=== PATIENT | male | born 1975 | race Two or more races ===

== ENCOUNTER 2017-03-28 10:35 | Emergency (ER) | payer BC ==
[2017-03-28 10:45] VITALS: BP 121/76
[2017-03-28] MEDS ORDERED: Ondansetron 4 MG/2 ML SDV IVPUSH ONE (10:55)
[2017-03-28] MEDS ORDERED: Sodium Chloride 0.9% 1,000 ML IV STA (10:55)
[2017-03-28] MEDS ORDERED: Sodium Chloride 0.9% 10 ML Syringe FLUSH PRN (10:55)
[2017-03-28] MEDS ORDERED: Famotidine 20 MG/2 ML SDV IVPUSH ONE (10:56)
--- NOTE | 2017-03-28 12:29 | EDM.PDOC ---
ED HPI GENERAL MEDICAL PROBLEM - General Chief Complaint: Abdominal Pain Stated Complaint: ABDOMINAL PAIN AND CHILLS Time Seen by Provider: 03/28/17 10:48 Source of Information: Reports: Patient History Limitations: Reports: No Limitations - History of Present Illness INITIAL COMMENTS - FREE TEXT/NARRATIVE: The patient presents with upper abdominal pain and nausea. This started 1 week ago. He has no vomiting or diarrhea. He has no dysuria. He can eat but he has a decreased appetite. His roommate is sick like he is. He has no fever or chills. He has no chest pain or shortness of breath. He has his gallbladder and appendix. Onset: Gradual Duration: Week(s): (1) Location: Reports: Abdomen Quality: Reports: Ache Severity: Mild Improves with: Reports: None Worsens with: Reports: None Associated Symptoms: Reports: Nausea/Vomiting. Denies: Cough, Fever/Chills, Headaches, Shortness of Breath Bilateral Upper Abdomen Pain Score (Numeric/FACES): 6 - Related Data Allergies Allergy/AdvReac Type Severity Reaction Status Date / Time No Known Allergies Allergy Verified 12/14/15 08:17 Home Meds: Home Meds Ondansetron [Zofran ODT] 4 mg PO Q6H PRN #20 tab.dis 03/28/17 [Rx] Past Medical History - Past Health History Medical/Surgical History: Denies Medical/Surgical History Dermatologic History: Reports: Other (See Below) Other Dermatologic History: lymphedema - Past Surgical History Dermatological Surgical History: Reports: Other (See Below) Social & Family History - Family History Endocrine/Metabolic: Reports: Diabetes, type II Oncologic: Reports: Prostate - Tobacco Use Smoking Status *Q: Never Smoker Years of Tobacco use: 20 Packs/Tins Daily: 1 Second Hand Smoke Exposure: No - Caffeine Use Caffeine Use: Reports: None - Alcohol Use Days Per Week of Alcohol Use: 0 - Recreational Drug Use Recreational Drug Use: No ED ROS GENERAL - Review of Systems Review Of Systems: See Below Constitutional: Reports: No Symptoms HEENT: Reports: No Symptoms Respiratory: Reports: No Symptoms Cardiovascular: Reports: No Symptoms Endocrine: Reports: No Symptoms GI/Abdominal: Reports: Abdominal Pain, Nausea. Denies: Diarrhea, Vomiting : Reports: No Symptoms Musculoskeletal: Reports: No Symptoms ED EXAM, GI/ABD - Physical Exam Exam: See Below Exam Limited By: No Limitations General Appearance: Alert, No Apparent Distress Ears: Normal External Exam Nose: Normal Inspection Head: Atraumatic, Normocephalic Neck: Normal Inspection Respiratory/Chest: No Respiratory Distress, Lungs Clear, Normal Breath Sounds Cardiovascular: Regular Rate, Rhythm, No Edema, No Murmur GI/Abdominal Exam: Soft, No Organomegaly, No Mass, Tender (Mild tenderness to the epigastric region) Course - Vital Signs Last Recorded V/S: Last Vital Signs Temp 98 F 03/28/17 10:42 Pulse 42 L 03/28/17 10:42 Resp 18 03/28/17 10:42 BP 121/76 03/28/17 10:42 Pulse Ox 100 03/28/17 10:42 - Orders/Labs/Meds Orders: Active Orders 24 hr Category Date Time Status Peripheral IV Care [RC] . DIRECTED Care 03/28/17 10:55 Active Sodium Chloride 0.9% [Saline Flush] Med 03/28/17 10:55 Active 10 ml FLUSH ASDIRECTED PRN ED Antiemetic Medication Reflex [OM.PC] Stat Oth 03/28/17 10:55 Ordered Peripheral IV Insertion Adult [OM.PC] Stat Oth 03/28/17 10:55 Ordered Medication Orders Sodium Chloride (Saline Flush) 10 ml FLUSH ASDIRECTED PRN PRN Reason: Keep Vein Open Last Admin: 03/28/17 11:13 Dose: 10 ml Labs: Laboratory Tests 03/28/17 03/28/17 03/28/17 Range/Units 11:15 11:15 11:15 WBC 2.97 L (4.23-9.07) K/mm3 RBC 4.60 L (4.63-6.08) M/mm3 Hgb 12.5 L (13.7-17.5) gm/L Hct 37.6 L (40.1-51.0) % MCV 81.7 (79.0-92.2) fl MCH 27.2 (25.7-32.2) pg MCHC 33.2 (32.2-35.5) g/dl RDW Std Deviation 42.8 (35.1-43.9) fL Plt Count 239 (163-337) K/mm3 MPV 9.5 (9.4-12.3) fl Neut % (Auto) 38.7 (34.0-67.9) % Lymph % (Auto) 46.5 (21.8-53.1) % [place] % (Auto) 8.4 (5.3-12.2) % Eos % (Auto) 5.7 (0.8-7.0) Baso % (Auto) 0.7 (0.1-1.2) % Neut # (Auto) 1.15 L (1.78-5.38) K/mm3 Lymph # (Auto) 1.38 (1.32-3.57) K/mm3 [place] # (Auto) 0.25 L (0.30-0.82) K/mm3 Eos # (Auto) 0.17 (0.04-0.54) K/mm3 Baso # (Auto) 0.02 (0.01-0.08) K/mm3 Manual Slide Review Abnormal smear Sodium 142 (136-145) mEq/L Potassium 3.9 (3.5-5.1) mEq/L Chloride 106 (98-107) mEq/L Carbon Dioxide 28 (21-32) mEq/L Anion Gap 11.9 (5-15) BUN 13 (7-18) mg/dL Creatinine 1.0 (0.7-1.3) mg/dL Est Cr Clr Drug Dosing 118.53 mL/min Estimated GFR (MDRD) > 60 (>60) mL/min BUN/Creatinine Ratio 13.0 L (14-18) Glucose 87 (74-106) mg/dL Calcium 9.0 (8.5-10.1) mg/dL Total Bilirubin 0.7 (0.2-1.0) mg/dL AST 25 (15-37) U/L ALT 38 (16-63) U/L Alkaline Phosphatase 68 (46-116) U/L Total Protein 7.1 (6.4-8.2) g/dl Albumin 3.5 (3.4-5.0) g/dl Globulin 3.6 gm/dL Albumin/Globulin Ratio 1.0 (1-2) Lipase 149 (73-393) U/L Urine Color Yellow (Yellow) Urine Appearance Clear (Clear) Urine pH 7.0 (5.0-8.0) Ur Specific [place] 1.025 (1.005-1.030) Urine Protein Negative (Negative) Urine Glucose (UA) Negative (Negative) Urine Ketones Negative (Negative) Urine Occult Blood Negative (Negative) Urine Nitrite Negative (Negative) Urine Bilirubin Negative (Negative) Urine Urobilinogen 0.2 (0.2-1.0) Ur Leukocyte Esterase Negative (Negative) Urine RBC 0-5 (0-5) /hpf Urine WBC 0-5 (0-5) /hpf Ur Epithelial Cells 0-5 (0-5) /hpf Amorphous Sediment Few H (NOT SEEN) /hpf Urine Bacteria Few (FEW) /hpf Urine Mucus Not seen (FEW) /hpf Monoscreen (NEGATIVE) 03/28/17 Range/Units 11:15 WBC (4.23-9.07) K/mm3 RBC (4.63-6.08) M/mm3 Hgb (13.7-17.5) gm/L Hct (40.1-51.0) % MCV (79.0-92.2) fl MCH (25.7-32.2) pg MCHC (32.2-35.5) g/dl RDW Std Deviation (35.1-43.9) fL Plt Count (163-337) K/mm3 MPV (9.4-12.3) fl Neut % (Auto) (34.0-67.9) % Lymph % (Auto) (21.8-53.1) % [place] % (Auto) (5.3-12.2) % Eos % (Auto) (0.8-7.0) Baso % (Auto) (0.1-1.2) % Neut # (Auto) (1.78-5.38) K/mm3 Lymph # (Auto) (1.32-3.57) K/mm3 [place] # (Auto) (0.30-0.82) K/mm3 Eos # (Auto) (0.04-0.54) K/mm3 Baso # (Auto) (0.01-0.08) K/mm3 Manual Slide Review Sodium (136-145) mEq/L Potassium (3.5-5.1) mEq/L Chloride (98-107) mEq/L Carbon Dioxide (21-32) mEq/L Anion Gap (5-15) BUN (7-18) mg/dL Creatinine (0.7-1.3) mg/dL Est Cr Clr Drug Dosing mL/min Estimated GFR (MDRD) (>60) mL/min BUN/Creatinine Ratio (14-18) Glucose (74-106) mg/dL Calcium (8.5-10.1) mg/dL Total Bilirubin (0.2-1.0) mg/dL AST (15-37) U/L ALT (16-63) U/L Alkaline Phosphatase (46-116) U/L Total Protein (6.4-8.2) g/dl Albumin (3.4-5.0) g/dl Globulin gm/dL Albumin/Globulin Ratio (1-2) Lipase (73-393) U/L Urine Color (Yellow) Urine Appearance (Clear) Urine pH (5.0-8.0) Ur Specific [place] (1.005-1.030) Urine Protein (Negative) Urine Glucose (UA) (Negative) Urine Ketones (Negative) Urine Occult Blood (Negative) Urine Nitrite (Negative) Urine Bilirubin (Negative) Urine Urobilinogen (0.2-1.0) Ur Leukocyte Esterase (Negative) Urine RBC (0-5) /hpf Urine WBC (0-5) /hpf Ur Epithelial Cells (0-5) /hpf Amorphous Sediment (NOT SEEN) /hpf Urine Bacteria (FEW) /hpf Urine Mucus (FEW) /hpf Monoscreen Negative (NEGATIVE) Meds: Medications Generic Name Dose Route Start Last Admin Trade Name Vania PRN Reason Stop Dose Admin Sodium Chloride 10 ml 03/28/17 10:55 03/28/17 11:13 Saline Flush FLUSH 10 ml ASDIRECTED PRN Administration Keep Vein Open Discontinued Medications Generic Name Dose Route Start Last Admin Trade Name Vania PRN Reason Stop Dose Admin Famotidine 20 mg 03/28/17 10:56 03/28/17 11:13 Pepcid IVPUSH 03/28/17 10:57 20 mg ONETIME ONE Administration Sodium Chloride 1,000 mls @ 1,000 mls/hr 03/28/17 10:55 03/28/17 11:13 Normal Saline IV 03/28/17 11:54 1,000 mls/hr .BOLUS STA Administration Ondansetron HCl 4 mg 03/28/17 10:55 03/28/17 11:13 Zofran IVPUSH 03/28/17 10:56 4 mg ONETIME ONE Administration - Re-Assessments/Exams Free Text/Narrative Re-Assessment/Exam: 03/28/17 12:29 I ordered an IV NS 1L bolus, zofran 4mg IV and pepcid 20mg IV. 03/28/17 12:29 His WBC was low at 2.97. His Hgb was a little low at 12.5. His CMP is negative. His UA shows no UTI. His mono was negative. He feels better. I will give him a prescription for zofran and have him take some pepcid. Departure - Departure Time of Disposition: 12:30 Disposition: Home, Self-Care 01 Condition: Good Clinical Impression: Viral gastritis - Discharge Information Prescriptions: Ondansetron [Zofran ODT] 4 mg PO Q6H PRN #20 tab.dis PRN Reason: Nausea/Vomiting Referrals: Alejandrina Bowen PA [Primary Care Provider] - 1 Week Forms: ED Department Discharge, ED Return to Work/School Form Additional Instructions: Take the zofran 4mg by mouth every 6 hours for nausea or vomiting. Take the pepcid 20mg daily for 1 week. You can buy that over the counter at the pharmacy or at the grocery store. Avoid any spicy foods. Drink plenty of fluids. Avoid alcohol. Follow up with your provider next week. Please return if you are worse. - My Orders Last 24 Hours: My Active Orders 03/28/17 10:55 Peripheral IV Care [RC] . DIRECTED Sodium Chloride 0.9% [Saline Flush] 10 ml FLUSH ASDIRECTED PRN ED Antiemetic Medication Reflex [OM.PC] Stat Peripheral IV Insertion Adult [OM.PC] Stat - Assessment/Plan Last 24 Hours: My Active Orders 03/28/17 10:55 Peripheral IV Care [RC] . DIRECTED Sodium Chloride 0.9% [Saline Flush] 10 ml FLUSH ASDIRECTED PRN ED Antiemetic Medication Reflex [OM.PC] Stat Peripheral IV Insertion Adult [OM.PC] Stat
== END 2017-03-28 12:52 | disposition home or self-care (01) ==
LOC: JD.ED 10:35
DX: A08.4 Viral intestinal infection, unspecified (principal)
CPT/HCPCS: 36415; 80053; 81001; 83690; 85025; 86308; 96361; 96374; 96375; 99284; J2405; J7040; J7050

== ENCOUNTER 2017-05-10 09:25 | Emergency (ER) | payer BC ==
[2017-05-10 09:38] VITALS: BP 131/81
[2017-05-10] MEDS ORDERED: Alum Hydrox/Mag Hydrox/Simeth 30 ML, Lidocaine 2% 15 ML PO STA ×2 (09:55)
--- NOTE | 2017-05-10 10:06 | EDM.PDOC ---
ED HPI GENERAL MEDICAL PROBLEM - General Chief Complaint: Chest Pain Stated Complaint: CHEST PAIN/STOMACH PAIN Time Seen by Provider: 05/10/17 09:37 Source of Information: Reports: Patient, Old Records, RN Notes Reviewed History Limitations: Reports: No Limitations - History of Present Illness INITIAL COMMENTS - FREE TEXT/NARRATIVE: The patient states that he developed rapid onset pressure in his epigastric and central chest around 01:00 this morning, while lying back in a recliner. He states that his symptoms improved after he got up, although they are still there. He has not tried any treatment for this. He states that he had similar symptoms about a year ago. Medical records indicate that the patient was seen in this ED 12/12/2015. Workup was negative, although the patient was diagnosed with dehydration. I note that the patient's oxygen saturation was 100% on room air during that visit. The patient states that he followed up at [facility] ED the following day. He states that additional tests were done, all of which were negative, and the patient was again given a diagnosis of dehydration. Medical records indicate that the patient was then seen in this ED the next day, on 12/14/2015 with a complaint of whole body numbness, feeling anxious, chest tightness, and hand shakiness. Again his oxygen saturation was 100% on room air. He was given the diagnosis of anxiety and prescribed Ativan. The patient has a history of morbid obesity, status post a 300 pound weight loss. He states that he takes Hydroxycut and drinks 5-hour Energy. It is noted that the patient's oxygen saturation is 100% on room air here in the ED today. The patient's PCP is Alejandrina Bowen. Chest Pain Score (Numeric/FACES): 2 - Related Data Allergies Allergy/AdvReac Type Severity Reaction Status Date / Time No Known Allergies Allergy Verified 05/10/17 09:35 Home Meds: Home Meds Ondansetron [Zofran ODT] 4 mg PO Q6H PRN #20 tab.dis 03/28/17 [Rx] Past Medical History Cardiovascular History: Reports: Other (See Below) (BLE lymphedema) Endocrine/Metabolic History: Reports: Obesity/BMI 30+ - Past Surgical History Dermatological Surgical History: Reports: Other (See Below) (Lipoma excision from right thigh) Social & Family History - Family History Endocrine/Metabolic: Reports: Diabetes, type II Oncologic: Reports: Prostate - Tobacco Use Smoking Status *Q: Never Smoker Second Hand Smoke Exposure: No - Caffeine Use Caffeine Use: Reports: None - Alcohol Use Alcohol Use History: Yes Alcohol Use Frequency: Socially - Recreational Drug Use Recreational Drug Use: No - Living Situation & Occupation Living situation: Reports: (), Other (Roommate) Occupation: Employed ([employer]) ED ROS GENERAL - Review of Systems Review Of Systems: See Below Constitutional: Reports: No Symptoms HEENT: Reports: No Symptoms Respiratory: Reports: No Symptoms Cardiovascular: Reports: No Symptoms Endocrine: Reports: No Symptoms GI/Abdominal: Reports: No Symptoms : Reports: No Symptoms Musculoskeletal: Reports: No Symptoms Skin: Reports: No Symptoms Neurological: Reports: No Symptoms Psychiatric: Reports: No Symptoms Hematologic/Lymphatic: Reports: No Symptoms Immunologic: Reports: No Symptoms ED EXAM, GENERAL - Physical Exam Exam: See Below Exam Limited By: No Limitations General Appearance: Alert, WD/WN, No Apparent Distress Eye Exam: Bilateral Eye: Normal Inspection Ears: Normal External Exam, Hearing Grossly Normal Nose: Normal Inspection, No Blood Throat/Mouth: Normal Inspection, Normal Lips, Normal Voice, No Airway Compromise Head: Atraumatic, Normocephalic Neck: Normal Inspection, Full Range of Motion Respiratory/Chest: No Respiratory Distress, Lungs Clear, Normal Breath Sounds, No Accessory Muscle Use Cardiovascular: Normal Peripheral Pulses, Regular Rate, Rhythm, No Gallop, No JVD, No Murmur, No Rub Peripheral Pulses: 4+: Radial (L), Radial (R) GI/Abdominal: Normal Bowel Sounds, Soft, Non-Tender, No Organomegaly, No Distention, No Abnormal Bruit, Other (Obese) (Male) Exam: Deferred Rectal (Males) Exam: Deferred Back Exam: Normal Inspection, Full Range of Motion, NT Extremities: Normal Range of Motion, Normal Capillary Refill, Other (Mild non- pitting edema bilateral lower extremity) Neurological: Alert, Oriented, Normal Cognition, No Motor/Sensory Deficits Psychiatric: Normal Affect Skin Exam: Warm, Dry, Intact, Normal Color, No Rash EKG INTERPRETATION EKG Date: 05/10/17 Time: 09:33 Rhythm: Other (Sinus bradycardia) Rate (Beats/Min): 44 [place]: Normal P-Wave: Present QRS: Normal ST-T: Normal QT: Normal Comparison: No Change (12/07/2015) Course - Vital Signs Last Recorded V/S: Last Vital Signs Temp 36.0 C 05/10/17 09:35 Pulse 46 L 05/10/17 09:35 Resp 14 05/10/17 09:35 BP 131/81 05/10/17 09:35 Pulse Ox 95 05/10/17 09:35 - Orders/Labs/Meds Orders: Active Orders 24 hr Category Date Time Status EKG Documentation Completion [RC] STAT Care 05/10/17 09:43 Active Meds: Medications Discontinued Medications Generic Name Dose Route Start Last Admin Trade Name Vania PRN Reason Stop Dose Admin Al Hydroxide/Mg Hydroxide 30 0 ml 05/10/17 09:55 05/10/17 10:04 ml/ Lidocaine HCl 15 ml PO 05/10/17 09:56 45 ml ONETIME STA Administration - Re-Assessments/Exams Free Text/Narrative Re-Assessment/Exam: 05/10/17 10:18 The patient states that he has significant improvement in his epigastric and chest pain following a GI cocktail. 05/10/17 10:29 The patient appears to have occasional GERD. I am recommending that if these symptoms occur infrequently, that he take an [id number]-[id number] antacid, such as Tums or Maalox. If they occur more frequently, I'm recommending that he start taking an [id number]-pym-ivmbyeh H2 carmen, such as famotidine or ranitidine. If that is unsuccessful, I would recommend that he switch to a PPI, however, if that were the case, I would recommend that he undergo an EGD. I also noticed that the patient's oxygen saturation was 100% while on room air here in the ED, and reviewing his prior ED visits on 12/12/2015 and 12/14/2015, it was the same. The patient was correctly diagnosed with anxiety by Dr. Chamorro on 12/13/2016, and prescribed Ativan, however, the patient has not followed up on this. I'm recommending that if he continues to have symptoms of anxiety, including whole body numbness, feeling anxious, chest tightness, and hand shakiness, as he did on 12/14/2015, that he follow-up with his PCP to discuss treatment options for anxiety. Departure - Departure Time of Disposition: 10:43 Disposition: Home, Self-Care 01 Condition: Good Clinical Impression: GERD (gastroesophageal reflux disease) - Discharge Information Instructions: Gastroesophageal Reflux Disease, Adult Referrals: Alejandrina Bowen PA [Primary Care Provider] - Forms: ED Department Discharge Additional Instructions: You were seen in the emergency room for upper abdominal and central chest pressure that began around midnight. Workup in the ER included an ECG and a GI cocktail. The GI cocktail gave significant relief, confirming that your pain is due to GERD. Your ECG was normal. If these symptoms are rare, you can simply take an antacid such as Tums or Maalox, however, if they are more frequent, we recommend you start taking an blth-yck-gmgksep H2 carmen, such as ranitidine or famotidine, once or twice a day. These medicines are inexpensive, and known to be safe. If you continue to have symptoms despite taking an H2 carmen, we would recommend that you switch to a proton pump inhibitor, such as Prilosec or Nexium , however, if this were the case, we would recommend that you get an EGD (scope of the stomach), to make sure that nothing serious is happening. Your oxygen saturation was noticed to be 100% on room air, consistent with hyperventilation. This was also the case on your prior ER visit on 12/12/2015 and 12/14/2015. The symptoms that you have had on 12/14/2015 of numbness, feeling anxious, chest tightness, and shaky hands was due to anxiety. If you have these symptoms of anxiety only rarely, nothing needs to be done, however, if these symptoms become frequent, we recommend that you follow-up with your PCP, Alejandrina Bowen, to discuss treatment options for anxiety. If any other problems, please do not hesitate to return to the ER. - My Orders Last 24 Hours: My Active Orders 05/10/17 09:43 EKG Documentation Completion [RC] STAT - Assessment/Plan Last 24 Hours: My Active Orders 05/10/17 09:43 EKG Documentation Completion [RC] STAT
== END 2017-05-10 10:56 | disposition home or self-care (01) ==
LOC: JD.ED 09:25
DX: K21.9 Gastro-esophageal reflux disease without esophagitis (principal); E66.01 Morbid (severe) obesity due to excess calories
CPT/HCPCS: 93005; 99284; A9270; 93010; 99282-25

== ENCOUNTER 2017-05-27 18:40 | Emergency (ER) | payer BC ==
[2017-05-27 19:09] VITALS: BP 117/65
--- NOTE | 2017-05-27 19:15 | EDM.PDOC ---
ED HPI GENERAL MEDICAL PROBLEM - General Chief Complaint: ENT Problem Stated Complaint: SINUS PAIN Time Seen by Provider: 05/27/17 19:08 Source of Information: Reports: Patient History Limitations: Reports: No Limitations - History of Present Illness INITIAL COMMENTS - FREE TEXT/NARRATIVE: 41-year-old male presents the ED with acute onset of upper respiratory tract infection. He is febrile with some chills. Left ear pain aware of the postnasal drip running down his throat causing him to have paroxysmal cough. No severe chills and appetite remains okay. Minimal cough from postnasal drip. Became ill about 2-1/2 days ago. Has been traveling extensively from [place] to [place] and then to here. Onset: Gradual Onset Date: 05/25/17 Duration: Day(s): Location: Reports: Face Quality: Reports: Ache Severity: Moderate Improves with: Reports: None Worsens with: Reports: None Context: Denies: Activity, Exercise, Lifting, Sick Contact, Trauma, Other Associated Symptoms: Reports: Cough, Fever/Chills, Headaches, Loss of Appetite. 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: Other (see below) Head Pain Score (Numeric/FACES): 4 - Related Data Allergies Allergy/AdvReac Type Severity Reaction Status Date / Time No Known Allergies Allergy Verified 05/27/17 19:07 Home Meds: Home Meds Ondansetron [Zofran ODT] 4 mg PO Q6H PRN #20 tab.dis 03/28/17 [Rx] Amoxicillin/Clavulanate K [Augmentin 500 MG\125 MG] 1 tab PO Q12HR #20 tablet [Rx] Loratadine/Pseudoephedrine [Claritin-D 24 Hour Tablet] 1 each PO DAILY #5 tab.er.24h 05/27/17 [Rx] Past Medical History - Past Health History Medical/Surgical History: Denies Medical/Surgical History Cardiovascular History: Reports: Other (See Below) (BLE lymphedema) Endocrine/Metabolic History: Reports: Obesity/BMI 30+ Dermatologic History: Reports: Other (See Below) Other Dermatologic History: lymphedema - Past Surgical History Dermatological Surgical History: Reports: Other (See Below) (Lipoma excision from right thigh) Social & Family History - Family History Endocrine/Metabolic: Reports: Diabetes, type II Oncologic: Reports: Prostate - Tobacco Use Smoking Status *Q: Never Smoker Years of Tobacco use: 20 Packs/Tins Daily: 1 Second Hand Smoke Exposure: No - Caffeine Use Caffeine Use: Reports: None - Alcohol Use Days Per Week of Alcohol Use: 0 - Recreational Drug Use Recreational Drug Use: No - Living Situation & Occupation Living situation: Reports: (), Other (Roommate) Occupation: Employed ([employer]) ED ROS ENT - Review of Systems Review Of Systems: See Below Constitutional: Reports: Fever, Chills, Malaise, Weakness. Denies: Decreased Appetite, Weight Loss HEENT: Reports: Ear Pain (Left side), Sinus Problem (Postnasal drip) Respiratory: Reports: Cough. Denies: Shortness of Breath, Sputum, Hemoptysis, Other Cardiovascular: Reports: No Symptoms Endocrine: Reports: No Symptoms GI/Abdominal: Reports: No Symptoms : Reports: No Symptoms Musculoskeletal: Reports: No Symptoms Skin: Reports: No Symptoms Neurological: Reports: No Symptoms, Change in Speech Hematologic/Lymphatic: Reports: No Symptoms Immunologic: Reports: No Symptoms ED EXAM, ENT - Physical Exam Exam: See Below Exam Limited By: No Limitations General Appearance: Alert, WD/WN, No Apparent Distress, Other Eye Exam: Bilateral Eye: Normal Inspection (Temperature is 99.3. Does feel warm to palpation.) Ears: TM Bulging (Left side), TM Erythema (Left side left side), TM Fluid Mouth/Throat: Normal Inspection, Normal Gums, Normal Lips, Normal Oropharynx. No: Tonsillar Exudates, Tonsillar Swelling Head: Atraumatic, Normocephalic Neck: Normal Inspection, Supple, Non-Tender, Full Range of Motion. No: Lymphadenopathy (L), Lymphadenopathy (R) Respiratory/Chest: No Respiratory Distress, Lungs Clear, Normal Breath Sounds, Chest Non-Tender Cardiovascular: Normal Peripheral Pulses, Regular Rate, Rhythm, No Edema, No Murmur Extremities: Normal Inspection, Normal Range of Motion, Non-Tender Neurological: Alert, Oriented, CN II-XII Intact, Normal Cognition Psychiatric: Normal Affect, Normal Mood Skin: Warm, Dry, Intact, Normal Color, No Rash Course - Vital Signs Last Recorded V/S: Last Vital Signs Temp 37.4 C 05/27/17 19:07 Pulse 85 05/27/17 19:07 Resp 18 05/27/17 19:07 BP 117/65 05/27/17 19:07 Pulse Ox 100 05/27/17 19:07 - Radiology Interpretation Free Text/Narrative:: 41-year-old male presents to the ED with an acute upper respiratory tract infection. He's been ill for 2 and half days and is developed sinusitis with postnasal drip which is causing some degree of cough. Left ear pain. Examination confirms an acute left otitis media. Some mild tenderness of the sinuses particularly the maxillaries. Postnasal drip evident on the examination of the oropharynx. Tonsils are normal without exudate. No cervical adenopathy. Chest is clear to stage percussion. She will be Augmentin 500 mg twice daily for 10 days. Claritin-D 24-hour release once daily every morning for the next 5 days. Continue ibuprofen 600 mg every 6 hours needed to break the fever and relief inflammation of sinus infection and near pain. Follow-up as needed. Departure - Departure Time of Disposition: 19:09 Disposition: Home, Self-Care 01 Condition: Fair Clinical Impression: Otitis media Qualifiers: Otitis media type: suppurative Chronicity: acute Laterality: left Recurrence: not specified as recurrent Spontaneous tympanic membrane rupture: without spontaneous rupture Qualified Code(s): H66.002 - Acute suppurative otitis media without spontaneous rupture of ear drum, left ear Sinusitis Qualifiers: Sinusitis location: unspecified location Chronicity: acute Recurrence: recurrent Qualified Code(s): J01.91 - Acute recurrent sinusitis, unspecified - Discharge Information Prescriptions: Amoxicillin/Clavulanate K [Augmentin 500 MG\125 MG] 1 tab PO Q12HR #20 tablet Loratadine/Pseudoephedrine [Claritin-D 24 Hour Tablet] 1 each PO DAILY #5 tab.er.24h Referrals: Alejandrina Bowen PA [Primary Care Provider] - Forms: ED Department Discharge Additional Instructions: Evaluation the emergent today in regards to upper respiratory tract infection. Sore throat postnasal drip and a left ear infection identified on examination. Treatment is Augmentin 500 mg twice daily for the next 10 days to clear up ear infection and sinus infection. Suggest Claritin-D 24-Hour release 1 tablet once daily every morning to help decongest your sinuses and the drainage tubes from the ears. Suggest Motrin 600 mg every 6 hours as needed for relief of fever or body aches and ear pain. Expect gradual improvement over the next 48 hours.
== END 2017-05-27 19:23 | disposition home or self-care (01) ==
LOC: JD.ED 18:40
DX: H66.002 Acute suppurative otitis media without spontaneous rupture of ear drum, left ear (principal); J01.91 Acute recurrent sinusitis, unspecified; E11.9 Type 2 diabetes mellitus without complications; Z79.899 Other long term (current) drug therapy
CPT/HCPCS: 99283

== ENCOUNTER 2017-08-07 17:46 | Emergency (ER) | payer BC ==
[2017-08-07 17:56] VITALS: BP 118/74
--- NOTE | 2017-08-07 18:19 | EDM.PDOC ---
ED HPI GENERAL MEDICAL PROBLEM - General Chief Complaint: Respiratory Problem Stated Complaint: NECK PAIN/SINUS ISSUES Time Seen by Provider: 08/07/17 18:18 Source of Information: Reports: Patient History Limitations: Reports: No Limitations - History of Present Illness INITIAL COMMENTS - FREE TEXT/NARRATIVE: Patient is a 42-year-old male presents ED with a 3 day history of sinus congestion, runny nose, sneezing, postnasal drip, and mild neck discomfort. Patient states he works in the [employer] outside in the elements and suspects he has a cold. Has taken some form of nasal decongestant while at work with minimal relief. He is wanting something to get rid of this cold. Denies any fever, ear pain, sore throat, chest pain, shortness of breath, abdominal pain, nausea/vomiting, rash, or any additional complaints. There is no body aches as well. Does not feel overly fatigued. Treatments EMERGENCY SPECIALIST: Reports: Other (see below) Other Treatments EMERGENCY SPECIALIST: cold and sinus tab Right Posterior Neck Pain Score (Numeric/FACES): 3 - Related Data Allergies Allergy/AdvReac Type Severity Reaction Status Date / Time No Known Allergies Allergy Verified 05/27/17 19:07 Home Meds: Home Meds . 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 - Past Surgical History Dermatological Surgical History: Reports: Other (See Below) Social & Family History - Family History Endocrine/Metabolic: Reports: Diabetes, type II Oncologic: Reports: Prostate - Tobacco Use Smoking Status *Q: Never Smoker Years of Tobacco use: 20 Packs/Tins Daily: 1 Second Hand Smoke Exposure: No - Caffeine Use Caffeine Use: Reports: Energy Drinks - Alcohol Use Days Per Week of Alcohol Use: 0 - Recreational Drug Use Recreational Drug Use: No - Living Situation & Occupation Living situation: Reports: (), Other (Roommate) Occupation: Employed ([employer]) ED ROS GENERAL - Review of Systems Review Of Systems: See Below Constitutional: Reports: No Symptoms HEENT: Reports: Rhinitis, Sinus Problem, Other (Postnasal drip). Denies: Ear Discharge, Ear Pain, Throat Pain, Throat Swelling Respiratory: Reports: No Symptoms. Denies: Cough, Sputum GI/Abdominal: Reports: No Symptoms Musculoskeletal: Reports: Neck Pain (Lymph node pain) Skin: Reports: No Symptoms Neurological: Reports: No Symptoms ED EXAM, GENERAL - Physical Exam Exam: See Below Exam Limited By: No Limitations General Appearance: Alert, WD/WN, No Apparent Distress Eye Exam: Bilateral Eye: PERRL Ears: Normal External Exam, Normal Canal, Hearing Grossly Normal, Normal TMs Nose: Normal Inspection Throat/Mouth: Normal Inspection, Normal Voice, No Airway Compromise, Other ( Postnasal drip noted) Head: Atraumatic, Normocephalic Neck: Normal Inspection, Supple, Full Range of Motion, Lymphadenopathy (L) ( Anterior cervical), Lymphadenopathy (R) (Anterior cervical) Respiratory/Chest: No Respiratory Distress, Lungs Clear, Normal Breath Sounds, No Accessory Muscle Use Cardiovascular: Normal Peripheral Pulses, Regular Rate, Rhythm, No Murmur Peripheral Pulses: 4+: Radial (R) GI/Abdominal: Normal Bowel Sounds, Soft, Non-Tender, No Organomegaly, No Distention Extremities: Normal Inspection Neurological: Alert, Oriented, CN II-XII Intact, Normal Cognition, Normal Gait, No Motor/Sensory Deficits Psychiatric: Normal Affect, Normal Mood Skin Exam: Warm, Dry, Intact, Normal Color, No Rash Course - Vital Signs Last Recorded V/S: Last Vital Signs Temp 97.6 F 08/07/17 17:55 Pulse 45 L 08/07/17 17:55 Resp 20 08/07/17 17:55 BP 118/74 08/07/17 17:55 Pulse Ox 100 08/07/17 17:55 - Re-Assessments/Exams Free Text/Narrative Re-Assessment/Exam: Influenza screen ordered and was negative. Patient has a viral upper respiratory infection. Treatment is symptomatic care only. Discharge instructions as documented. Departure - Departure Time of Disposition: 19:08 Disposition: Home, Self-Care 01 Condition: Good Clinical Impression: Viral upper respiratory tract infection - Discharge Information Instructions: Upper Respiratory Infection, Adult Referrals: PCP,None [Primary Care Provider] - Forms: ED Department Discharge, ED Return to Work/School Form Additional Instructions: Utilize Afrin 1 spray to each nare twice a day for no more than 3 days. Utilize Flonase 1 spray to each nare twice a day as needed. Nasal saline spray to each nare as frequent throughout the day as needed. This is to loosen secretions and moisten nasal passageways. Tylenol and ibuprofen in alternating fashion for discomfort. Push the fluids. Ensure adequate rest. Follow-up with PCP in 10 days if symptoms persist. Return to the ED if you develop any new or worsening symptoms.
== END 2017-08-07 19:20 | disposition home or self-care (01) ==
LOC: JD.ED 17:46
DX: J06.9 Acute upper respiratory infection, unspecified (principal); E66.9 Obesity, unspecified; Z68.37 Body mass index [BMI] 37.0-37.9, adult
CPT/HCPCS: 87804; 99282; 99283

== ENCOUNTER 2018-01-21 18:17 | Emergency (ER) | payer BC ==
--- NOTE | 2018-01-21 19:12 | EDM.PDOC ---
ED HPI GENERAL MEDICAL PROBLEM - General Chief Complaint: Cardiovascular Problem Stated Complaint: HIGH BP Time Seen by Provider: 01/21/18 18:46 Right Headache Pain Score (Numeric/FACES): 7 - Related Data Allergies Allergy/AdvReac Type Severity Reaction Status Date / Time No Known Allergies Allergy Verified 01/21/18 18:37 MDT Home Meds: Home Meds Naproxen [Naprosyn] 500 mg PO Q12HR #20 tab 01/21/18 [Rx] Past Medical History - Past Health History Medical/Surgical History: Denies Medical/Surgical History Cardiovascular History: Reports: Other (See Below) (BLE lymphedema) Endocrine/Metabolic History: Reports: Obesity/BMI 30+ Dermatologic History: Reports: Other (See Below) 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 - Past Surgical History Dermatological Surgical History: Reports: Other (See Below) Social & Family History - Family History Endocrine/Metabolic: Reports: Diabetes, type II Oncologic: Reports: Prostate - Tobacco Use Smoking Status *Q: Never Smoker - Caffeine Use Caffeine Use: Reports: Energy Drinks - Recreational Drug Use Recreational Drug Use: No - Living Situation & Occupation Living situation: Reports: (), Other (Roommate) Occupation: Employed ([employer]) ED ROS GENERAL - Review of Systems Review Of Systems: See Below Constitutional: Denies: Fever, Chills, Malaise, Weakness, Fatigue Respiratory: Denies: Shortness of Breath, Cough Cardiovascular: Denies: Chest Pain GI/Abdominal: Denies: Abdominal Pain, Diarrhea, Nausea, Vomiting Musculoskeletal: Reports: Foot Pain Skin: Reports: Rash, Erythema Neurological: Denies: Dizziness, Headache ED EXAM, GENERAL - Physical Exam Exam: See Below Exam Limited By: No Limitations General Appearance: WD/WN, No Apparent Distress Head: Atraumatic Respiratory/Chest: No Respiratory Distress, Lungs Clear, Normal Breath Sounds Cardiovascular: Normal Peripheral Pulses, Regular Rate, Rhythm, No Edema Peripheral Pulses: 2+: Posterior Tibial (L), Dorsalis Pedis (L) GI/Abdominal: Normal Bowel Sounds, Non-Tender Extremities: Other (Area of erythema noted, warmth and redness and tenderness. No inguinal adenopathy, no red streaking comes to Refill and sensation are normal) Neurological: Alert, Oriented Psychiatric: Normal Affect, Normal Mood EKG INTERPRETATION EKG Date: 01/21/18 Time: 20:57 EKG Interpretation Comments: Normal sinus rhythm rate of 61. A letter 73 ms Saab's 113 ms QT corrected is normal, R's R prime in lead V1 otherwise no acute findings. Course - Vital Signs Text/Narrative:: Patient has a left lower extremity left foot cellulitis, no signs of abscess, doubt circulation deficit, doubt DVT, no abscess pocket noted. Well demarcated edges. Patient has been on clindamycin and Bactrim DS. Given a dose of Unasyn, lab markers are essentially within normal limits. Will have patient return at 6: 30 in the morning for recheck evaluation and another dose of antibiotics. Last Recorded V/S: Last Vital Signs Temp 98.1 F 01/21/18 18:32 MDT Pulse 58 L 01/21/18 18:32 MDT Resp 18 01/21/18 18:32 MDT BP 126/78 01/21/18 21:21 MDT Pulse Ox 97 01/21/18 18:32 MDT - Orders/Labs/Meds Orders: Active Orders 24 hr Category Date Time Status EKG Documentation Completion [RC] STAT Care 01/21/18 19:23 Active UA W/MICROSCOPIC [URIN] Stat Lab 01/21/18 20:10 Ordered Labs: Laboratory Tests 01/21/18 01/21/18 01/21/18 Range/Units 20:00 MDT 20:00 MDT 20:10 MDT WBC 4.62 (4.23-9.07) K/mm3 RBC 4.78 (4.63-6.08) M/mm3 Hgb 12.8 L (13.7-17.5) gm/L Hct 39.0 L (40.1-51.0) % MCV 81.6 (79.0-92.2) fl MCH 26.8 (25.7-32.2) pg MCHC 32.8 (32.2-35.5) g/dl RDW Std Deviation 44.6 H (35.1-43.9) fL Plt Count 219 (163-337) K/mm3 MPV 9.4 (9.4-12.3) fl Neut % (Auto) 49.3 (34.0-67.9) % Lymph % (Auto) 33.1 (21.8-53.1) % [place] % (Auto) 11.3 (5.3-12.2) % Eos % (Auto) 5.2 (0.8-7.0) Baso % (Auto) 0.9 (0.1-1.2) % Neut # (Auto) 2.28 (1.78-5.38) K/mm3 Lymph # (Auto) 1.53 (1.32-3.57) K/mm3 [place] # (Auto) 0.52 (0.30-0.82) K/mm3 Eos # (Auto) 0.24 (0.04-0.54) K/mm3 Baso # (Auto) 0.04 (0.01-0.08) K/mm3 Sodium 144 (136-145) mEq/L Potassium 4.0 (3.5-5.1) mEq/L Chloride 110 H (98-107) mEq/L Carbon Dioxide 29 (21-32) mEq/L Anion Gap 9.0 (5-15) BUN 16 (7-18) mg/dL Creatinine 1.0 (0.7-1.3) mg/dL Est Cr Clr Drug Dosing 120.56 mL/min Estimated GFR (MDRD) > 60 (>60) mL/min BUN/Creatinine Ratio 16.0 (14-18) Glucose 96 (74-106) mg/dL Calcium 8.6 (8.5-10.1) mg/dL Total Bilirubin 0.2 (0.2-1.0) mg/dL AST 26 (15-37) U/L ALT 33 (16-63) U/L Alkaline Phosphatase 75 (46-116) U/L Total Protein 6.7 (6.4-8.2) g/dl Albumin 3.2 L (3.4-5.0) g/dl Globulin 3.5 gm/dL Albumin/Globulin Ratio 0.9 L (1-2) Urine Color Yellow (Yellow) Urine Appearance Clear (Clear) Urine pH 6.0 (5.0-8.0) Ur Specific [place] > or = 1.030 (1.005-1.030) Urine Protein Negative (Negative) Urine Glucose (UA) Negative (Negative) Urine Ketones Negative (Negative) Urine Occult Blood Negative (Negative) Urine Nitrite Negative (Negative) Urine Bilirubin Negative (Negative) Urine Urobilinogen 0.2 (0.2-1.0) Ur Leukocyte Esterase Negative (Negative) Urine RBC Not seen (0-5) /hpf Urine WBC 0-5 (0-5) /hpf Ur Epithelial Cells 0-5 (0-5) /hpf Urine Bacteria Few (FEW) /hpf Urine Mucus Few (FEW) /hpf Meds: Medications Discontinued Medications Generic Name Dose Route Start Last Admin Trade Name Vania PRN Reason Stop Dose Admin Sodium Chloride 1,000 mls @ 1,000 mls/hr 01/21/18 19:23 MDT 01/21/18 19:58 MDT Normal Saline IV 01/21/18 20:22 MDT 1,000 mls/hr ONETIME ONE Administration Ketorolac Tromethamine 15 mg 01/21/18 19:23 MDT 01/21/18 19:58 MDT Toradol IVPUSH 01/21/18 19:24 MDT 15 mg ONETIME ONE Administration - Re-Assessments/Exams Free Text/Narrative Re-Assessment/Exam: 01/21/18 20:58 Patient doing much better, blood pressure stabilized, no acute findings on his laboratory evaluation her EKG. We'll treat for headache with Naprosyn, follow- up with primary care, monitor his blood pressure, return precautions given Departure - Departure Time of Disposition: 20:59 Disposition: Left Without Being Seen 07 Condition: Good Clinical Impression: Elevated blood pressure, situational Headache Qualifiers: Headache type: unspecified Headache chronicity pattern: acute headache Intractability: not intractable Qualified Code(s): R51 - Headache Prescriptions: Naproxen [Naprosyn] 500 mg PO Q12HR #20 tab Instructions: Hypertension, [id number] Referrals: PCP,None [Primary Care Provider] - Forms: ED Department Discharge Additional Instructions: Monitor her blood pressure regularly record, try to eat more regular frequent meals, perform more exercise on a regular basis. Return if recurrent headaches, chest pain, shortness of breath, increasing fatigue, dizziness weakness are worse. - My Orders Last 24 Hours: My Active Orders 01/21/18 19:23 EKG Documentation Completion [RC] STAT 01/21/18 20:10 UA W/MICROSCOPIC [URIN] Stat - Assessment/Plan Last 24 Hours: My Active Orders 01/21/18 19:23 EKG Documentation Completion [RC] STAT 01/21/18 20:10 UA W/MICROSCOPIC [URIN] Stat
[2018-01-21] MEDS ORDERED: Sodium Chloride 0.9% 1,000 ML IV ONE (19:23)
[2018-01-21] MEDS ORDERED: Ketorolac 15 MG/ML SDV IVPUSH ONE (19:23)
[2018-01-21 21:53] VITALS: BP 126/78
== END 2018-01-21 21:21 | disposition left against medical advice (07) ==
LOC: JD.ED 18:17
DX: R51 Headache (principal); L03.116 Cellulitis of left lower limb; R03.0 Elevated blood-pressure reading, without diagnosis of hypertension; E66.9 Obesity, unspecified
CPT/HCPCS: 36415; 80053; 81001; 85025; 93005; 96361; 96374; 99284; J1885; J7040; 93010; 99283-25

== ENCOUNTER 2018-05-24 14:32 | Emergency (ER) | payer BC ==
[2018-05-24 14:46] VITALS: BP 141/87
[2018-05-24] MEDS ORDERED: Diphtheria,Pertussis(Acell),Tetanus Vaccine 0.5 ML Syringe IM ONE (15:14)
--- NOTE | 2018-05-24 15:16 | EDM.PDOC ---
ED HPI GENERAL MEDICAL PROBLEM - General Chief Complaint: Lower Extremity Injury/Pain Stated Complaint: L HIP PAIN Time Seen by Provider: 05/24/18 15:07 - History of Present Illness INITIAL COMMENTS - FREE TEXT/NARRATIVE: 42-year-old male attends the ED due to severe pain around his right buttock and posterior left hip. He states he believes he was injured in the workplace yesterday as he had to squat for a very prolonged period of time in an awkward position opposition he's not used to. As the day has gone on today he can hardly walk due to pain. When he's at rest he is in no pain. It hurts worse when he externally rotates his left leg. He didn't fall or injure the area. He can localize the pain very well. He has absolutely no groin pain. Onset: Gradual Onset Date: 05/23/18 Duration: Hour(s): (Was aware of pain by time he was finished work yesterday and it's progressed overnight. Became painful for him even to lie on his left side overnight) Location: Reports: Lower Extremity, Left (Left posterior lateral hip.) Quality: Reports: Ache, Throbbing Severity: Moderate Improves with: Reports: None (Pain is bad enough that it kept him awake good portion of the night after 4:00 is no position was carpal.), Rest Worsens with: Reports: Movement Context: Reports: Other. 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 Left Hip Pain Score (Numeric/FACES): 9 - Related Data Allergies Allergy/AdvReac Type Severity Reaction Status Date / Time No Known Allergies Allergy Verified 05/24/18 14:45 Home Meds: Home Meds Suplement From [facility] 1 dose PO DAILY 05/24/18 [History] oxyCODONE HCl/Acetaminophen [Percocet 5-325 mg Tablet] 1 - 2 each PO Q4H PRN # 18 tablet 05/24/18 [Rx] predniSONE [Deltasone] 20 mg PO BID #10 tablet 05/24/18 [Rx] Past Medical History - Past Health History Medical/Surgical History: Denies Medical/Surgical History Cardiovascular History: Reports: Other (See Below) Endocrine/Metabolic History: Reports: Obesity/BMI 30+ Dermatologic History: Reports: Other (See Below) 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 - Past Surgical History Dermatological Surgical History: Reports: Other (See Below) Social & Family History - Family History Endocrine/Metabolic: Reports: Diabetes, type II Oncologic: Reports: Prostate - Tobacco Use Smoking Status *Q: Never Smoker - Caffeine Use Caffeine Use: Reports: None - Recreational Drug Use Recreational Drug Use: No - Living Situation & Occupation Living situation: Reports: (), Other (Roommate) Occupation: Employed ([employer]) Review of Systems - Review of Systems Review Of Systems: See Below Constitutional: Reports: No Symptoms Eyes: Reports: No Symptoms Ears: Reports: No Symptoms Nose: Reports: No Symptoms Mouth/Throat: Reports: No Symptoms Respiratory: Reports: No Symptoms Cardiovascular: Reports: No Symptoms GI/Abdominal: Reports: No Symptoms Genitourinary: Reports: No Symptoms Musculoskeletal: Reports: Other Neurological: Reports: No Symptoms Psychiatric: Reports: No Symptoms ED EXAM, GENERAL - Physical Exam Exam: See Below Exam Limited By: No Limitations General Appearance: Alert, WD/WN, No Apparent Distress, Other (He has no pain at rest.) Back Exam: Other (Localize no pain throughout his facet joints or muscle spasm in his lower back on the left side or right side.) Extremities: Other (He has no pain in the groin. Pain is worsened by external rotation of the hip. He was able to lift the leg off the gurney without any pain in his hip. Standing pain is well localized to the posterior iliac crest for the gluteus muscles insert along the posterior iliac crest. No pain over the greater trochanteric bursa.) Neurological: Alert, Oriented, CN II-XII Intact, Normal Cognition. No: Normal Gait (Limping gait) Course - Vital Signs Last Recorded V/S: Last Vital Signs Temp 36.6 C 05/24/18 14:42 Pulse 59 L 05/24/18 14:42 Resp 18 05/24/18 14:42 BP 141/87 H 05/24/18 14:42 Pulse Ox 99 05/24/18 14:42 - Orders/Labs/Meds Orders: Active Orders 24 hr Category Date Time Status Vaccines to be Administered [RC] PER UNIT ROUTINE Care 05/24/18 15:14 Active Meds: Medications Discontinued Medications Generic Name Dose Route Start Last Admin Trade Name Jerseyq PRN Reason Stop Dose Admin Diphtheria/Tetanus/Acell Pertussis 0.5 ml 05/24/18 15:14 Adacel IM 05/24/18 15:15 .ONCE ONE - Radiology Interpretation Free Text/Narrative:: 42-year-old male presents to the ED with gradually worsening pain posterior lateral left hip since yesterday. Patient states he had to squat a great deal yesterday much more than he would ever normally in the workplace. By the time he was done work yesterday he felt pain in his posterior lateral left hip area which progressed intensity overnight. By 4:00 he was no longer able to sleep because of the throbbing pain. Today every time he tries to walk he has severe pain in particular try to get in and out of the vehicle. States if he's at rest he has no pain or very little pain or discomfort examination shows that the pain is well localized to the insertion of the gluteus muscles along the posterior iliac crest surrounding his posterior left hip. There is no true hip involvement although it pain is worsened by externally rotating the left hip. Greater trochanteric bursa is normal. No pain in the deep SI joint or in his back. Plan continue Motrin 600 mg every 6 hours to relieve pain and inflammation placed him on a short course of prednisone 20 mg twice a day for the next 5 days and Percocet tabs 5/3/25 one or 2 every 4-6 hours for pain relief for the next few days. He is getting his meds of the [employer] machine therefore received 18 tablets. Departure - Departure Time of Disposition: 15:32 Disposition: Home, Self-Care 01 Condition: Fair Clinical Impression: Gluteal tendinitis, left hip - Discharge Information *PRESCRIPTION DRUG MONITORING PROGRAM REVIEWED*: No *COPY OF PRESCRIPTION DRUG MONITORING REPORT IN PATIENT SHRAVAN: No Prescriptions: oxyCODONE HCl/Acetaminophen [Percocet 5-325 mg Tablet] 1 - 2 each PO Q4H PRN # 18 tablet PRN Reason: pain relief. predniSONE [Deltasone] 20 mg PO BID #10 tablet Instructions: Tendinitis Referrals: Treasure Chamorro, DEPUTY COURT CLERK [Primary Care Provider] - Forms: ED Department Discharge Additional Instructions: Evaluation the emergency room today in regards to acute strain to the muscles surrounding your left hip. This occurred in the workplace from excessive squatting yesterday. Examination reveals marked tenderness along the distribution of the insertion site of the gluteal muscles along the iliac crest or hip bone on the left side. The true hip bone is within normal limits there is no greater trochanteric bursitis. X-rays were not felt to be useful. 2 minutes time to heal usually 5-7 days. Suggest use of Deltasone or prednisone 20 mg in the morning with breakfast and supper for 5 days continue ibuprofen 800 mg every 6-8 hours to reduce pain and inflammation and pain pill works at 5/ 325 mg one or 2 every 4-6 hours needed for pain the next 2-3 days after that the anti-inflammatories should be working well enough to relieve the good deal of your pain. He plays ice pack on the area one half hour to every 4 hours for the next 24 hours and after that may apply heat to the area for in a similar type fashion. Expect gradual improvement over the next 5-7 days - My Orders Last 24 Hours: My Active Orders 05/24/18 15:14 Vaccines to be Administered [RC] PER UNIT ROUTINE - Assessment/Plan Last 24 Hours: My Active Orders 05/24/18 15:14 Vaccines to be Administered [RC] PER UNIT ROUTINE
== END 2018-05-24 15:53 | disposition home or self-care (01) ==
LOC: JD.ED 14:32
DX: M76.02 Gluteal tendinitis, left hip (principal); Z23 Encounter for immunization; Z79.899 Other long term (current) drug therapy
CPT/HCPCS: 99283

== ENCOUNTER 2018-06-25 05:25 | Emergency (ER) | payer BC ==
[2018-06-25 05:35] VITALS: BP 135/79
--- NOTE | 2018-06-25 05:51 | EDM.PDOC ---
ED HPI GENERAL MEDICAL PROBLEM - General Chief Complaint: Neck Problem Stated Complaint: BUMP ON BACK OF NECK Time Seen by Provider: 06/25/18 05:36 Source of Information: Reports: Patient, RN Notes Reviewed History Limitations: Reports: No Limitations - History of Present Illness INITIAL COMMENTS - FREE TEXT/NARRATIVE: The patient states that he noticed a swelling to his posterior right neck yesterday, but that it is increased today. It is only mildly bothersome. No associated fever. The patient states that he developed a stinging sensation when he laid down on his couch the other day, believing that he was bitten by an insect. No prior similar symptoms. The patient does not have a PCP. Neck Pain Score (Numeric/FACES): 2 - Related Data Allergies Allergy/AdvReac Type Severity Reaction Status Date / Time No Known Allergies Allergy Verified 06/25/18 05:33 Home Meds: Home Meds . [No Known Home Meds] 06/25/18 [History] Past Medical History Cardiovascular History: Reports: Other (See Below) (BLE lymphedema) Gastrointestinal History: Reports: GERD ( untreated) Psychiatric History: Reports: Anxiety (untreated) Endocrine/Metabolic History: Reports: Obesity/BMI 30+ - Past Surgical History Dermatological Surgical History: Reports: Other (See Below) (Lipoma excised from right thigh) Social & Family History - Family History Endocrine/Metabolic: Reports: Diabetes, type II Oncologic: Reports: Prostate - Tobacco Use Smoking Status *Q: Never Smoker - Caffeine Use Caffeine Use: Reports: None - Recreational Drug Use Recreational Drug Use: No - Living Situation & Occupation Living situation: Reports: (), Other (Roommate) Occupation: Employed ([employer]) ED ROS GENERAL - Review of Systems Review Of Systems: ROS reveals no pertinent complaints other than HPI. ED EXAM, SKIN/RASH Exam: See Below Exam Limited By: No Limitations General Appearance: Alert, WD/WN, No Apparent Distress Eye Exam: Bilateral Eye: EOMI, Normal Inspection Ears: Normal External Exam Nose: Normal Inspection Throat/Mouth: Normal Inspection, Normal Lips, Normal Voice, No Airway Compromise Head: Atraumatic, Normocephalic Neck: Other (Visible and palpable swelling, measuring approximately 2.5 cm diameter, to the posterior right neck. Minimally tender.) Course - Vital Signs Last Recorded V/S: Last Vital Signs Temp 36.5 C 06/25/18 05:33 Pulse 71 06/25/18 05:33 Resp 18 06/25/18 05:33 BP 135/79 06/25/18 05:33 Pulse Ox 97 06/25/18 05:33 - Re-Assessments/Exams Free Text/Narrative Re-Assessment/Exam: 06/25/18 05:46 It's possible that the nodule to the posterior right neck is a swollen lymph node, but the patient feels like he likely was bitten by an insect in that area , which is more likely to be the cause. Since it doesn't really hurt much, I recommended that the patient simply leave it alone. Departure - Departure Time of Disposition: 05:47 Disposition: Home, Self-Care 01 Condition: Good Clinical Impression: Localized swelling, mass or lump of neck - Discharge Information *PRESCRIPTION DRUG MONITORING PROGRAM REVIEWED*: Not Applicable *COPY OF PRESCRIPTION DRUG MONITORING REPORT IN PATIENT SHRAVAN: Not Applicable Referrals: PCP,None [Primary Care Provider] - Additional Instructions: You were seen in the emergency room for a swelling noticed the back right of your neck. Based on your history and physical exam, the swelling is most likely caused by an insect bite. Since the area is not causing much discomfort, we recommend that you leave it alone. If any other problems, please follow-up with your PCP.
== END 2018-06-25 05:54 | disposition home or self-care (01) ==
LOC: JD.ED 05:25
DX: R22.1 Localized swelling, mass and lump, neck (principal)
CPT/HCPCS: 99282

== ENCOUNTER 2021-01-08 16:00 | Emergency (ER) | payer BC, OTHER ==
[2021-01-08 16:22] VITALS: BP 140/91; PULSE 109
--- NOTE | 2021-01-08 16:55 | EDM.PDOC ---
ED HPI GENERAL MEDICAL PROBLEM - General Chief Complaint: ENT Problem Stated Complaint: SORE THROAT Time Seen by Provider: 01/08/21 16:21 Source of Information: Reports: Patient, RN Notes Reviewed History Limitations: Reports: No Limitations - History of Present Illness INITIAL COMMENTS - FREE TEXT/NARRATIVE: Patient is a 45-year-old male who presents to the ER for evaluation of a sore throat. Notes this has been sore for the last 2 days. Patient states he also has some accompanying congestion, and neck pain. Patient states that he had had Covid in May 2020, and states that this feels entirely different than COVID- 19. He has had some associated fevers as well, and it is exquisitely painful to swallow. He is not taking anything for pain medication prior to coming to the ER. - Related Data Allergies Allergy/AdvReac Type Severity Reaction Status Date / Time No Known Allergies Allergy Verified 01/08/21 16:19 Home Meds: Home Meds Amoxicillin/Clavulanate K [Augmentin 875-125 MG] 1 tab PO BID 10 Days #20 tablet 01/08/21 [Rx] Past Medical History - Past Health History Medical/Surgical History: Denies Medical/Surgical History Cardiovascular History: Reports: High Cholesterol, Hypertension Gastrointestinal History: Reports: GERD Psychiatric History: Reports: Anxiety Endocrine/Metabolic History: Reports: Obesity/BMI 30+ Dermatologic History: Reports: Other (See Below) Other Dermatologic History: 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 - Infectious Disease History Infectious Disease History: Reports: Novel Coronavirus - Past Surgical History Dermatological Surgical History: Reports: Other (See Below) Social & Family History - Family History Endocrine/Metabolic: Reports: Diabetes, type II Oncologic: Reports: Prostate - Tobacco Use Tobacco Use Status *Q: Never Tobacco User Second Hand Smoke Exposure: No - Caffeine Use Caffeine Use: Reports: None - Recreational Drug Use Recreational Drug Use: No - Living Situation & Occupation Living situation: Reports: (), Other (Roommate) Occupation: Employed ([employer]) ED ROS ENT - Review of Systems Review Of Systems: Comprehensive ROS is negative, except as noted in HPI. ED EXAM, ENT - Physical Exam Exam: See Below Exam Limited By: No Limitations General Appearance: Alert, WD/WN, No Apparent Distress Mouth/Throat: Normal Inspection, Normal Gums, Normal Lips, Normal Oropharynx, Normal Teeth, Pharyngeal Erythema Head: Atraumatic, Normocephalic Neck: Normal Inspection, Supple, Full Range of Motion, Tender Lateral (no appreciable lymph nodes, but the patient is somewhat tender on palpation of his neck) Respiratory/Chest: No Respiratory Distress, Lungs Clear, Normal Breath Sounds, No Accessory Muscle Use, Chest Non-Tender Cardiovascular: Normal Peripheral Pulses, Regular Rate, Rhythm, No Edema Extremities: Normal Inspection, Normal Capillary Refill Neurological: Alert, Oriented, Normal Cognition, No Motor/Sensory Deficits Psychiatric: Normal Affect, Normal Mood Skin: Warm, Dry, Intact, Normal Color, No Rash Course - Vital Signs Last Recorded V/S: Last Vital Signs Temp 98.1 F 01/08/21 16:20 Pulse 109 H 01/08/21 16:20 Resp 18 01/08/21 16:20 BP 140/91 H 01/08/21 16:20 Pulse Ox 96 01/08/21 16:20 - Orders/Labs/Meds Labs: Laboratory Tests 01/08/21 Range/Units 16:52 Group A Strep (PCR) Detected (NOT DETECT) - Re-Assessments/Exams Free Text/Narrative Re-Assessment/Exam: 01/08/21 16:55 Patient presents to the ER for evaluation of his sore throat. I did caution him that Covid is circulating in the community again, but he wishes to not be tested for COVID-19 and only for strep at this time. We will go ahead and order a strep screen. 01/08/21 17:50 Patient strep screen was positive. He does request to be placed on pills, so I have placed a prescription for Augmentin to the [facility] for ongoing management. Departure - Departure Time of Disposition: 17:50 Disposition: Home, Self-Care 01 Condition: Good Clinical Impression: Strep throat - Discharge Information *PRESCRIPTION DRUG MONITORING PROGRAM REVIEWED*: No *COPY OF PRESCRIPTION DRUG MONITORING REPORT IN PATIENT SHRAVAN: No Prescriptions: Amoxicillin/Clavulanate K [Augmentin 875-125 MG] 1 tab PO BID 10 Days #20 tablet Instructions: Strep Throat, Adult, [id number] Forms: ED Department Discharge Additional Instructions: You were evaluated in the ER today for your sore throat. Your strep screen was positive for strep at this time, you will be started on Augmentin, 1 tablet twice a day until gone. This medication was electronically sent to the [place] pharmacy located in the [employer] store. For ongoing pain management, you may take Tylenol ibuprofen every 6 hours as needed, but do not exceed 4000 mg Tylenol or 3200 mg ibuprofen in a 24-hour time span. Do not hesitate to return to the ER at any time if symptoms change or worsen. Sepsis Event Note (ED) - Evaluation Sepsis Screening Result: No Definite Risk - Focused Exam Vital Signs: Vital Signs Temp Pulse Resp BP Pulse Ox 01/08/21 16:20 98.1 F 109 H 18 140/91 H 96
== END 2021-01-08 17:56 | disposition home or self-care (01) ==
LOC: JD.ED 16:00
DX: J02.0 Streptococcal pharyngitis (principal); Z86.16 Personal history of COVID-19
CPT/HCPCS: 87651-QW; 99283

== ENCOUNTER 2021-02-06 13:31 | Emergency (ER) | payer OTHER ==
[2021-02-06 15:15] VITALS: BP 184/102; PULSE 80
--- NOTE | 2021-02-06 16:35 | EDM.PDOC ---
ED HPI GENERAL MEDICAL PROBLEM - General Chief Complaint: Respiratory Problem Stated Complaint: DIFFICULTY BREATHING X 3 WEEKS Time Seen by Provider: 02/06/21 16:11 Source of Information: Reports: Patient, RN Notes Reviewed History Limitations: Reports: No Limitations - History of Present Illness INITIAL COMMENTS - FREE TEXT/NARRATIVE: Patient is a 45-year-old male presenting to the emergency department with complaints of a 1 week history of shortness of breath with exertion, sinus congestion, and productive cough. Reports a few weeks ago he was treated for strep throat. Around the same time, he stopped taking his chlorthalidone which he was prescribed for hypertension because he ran out and his insurance does not transfer from [place] until next month. He has however been taking his he denies any significant chest pain. He does not have shortness of breath at rest, only on exertion. States his cough feels like he has "phlegm in his throat "that he cannot cough up. Denies any fever, chills, nausea, or vomiting. - Related Data Allergies Allergy/AdvReac Type Severity Reaction Status Date / Time No Known Allergies Allergy Verified 02/06/21 15:16 Home Meds: Home Meds Furosemide [Lasix] 20 mg PO DAILY #30 tab 02/06/21 [Rx] Losartan/Hydrochlorothiazide [Losartan-HCTZ 100-12.5 MG] 1 each PO DAILY 02/06/21 [History] hydroCHLOROthiazide [Hydrochlorothiazide] 100 mg PO DAILY 02/06/21 [History] Past Medical History - Past Health History Medical/Surgical History: Denies Medical/Surgical History Cardiovascular History: Reports: High Cholesterol, Hypertension Respiratory History: Reports: Sleep Apnea Gastrointestinal History: Reports: GERD Genitourinary History: Reports: None Psychiatric History: Reports: Anxiety Endocrine/Metabolic History: Reports: Obesity/BMI 30+ Immunologic History: Reports: None Oncologic (Cancer) History: Reports: Lymphoma Other Oncologic History: benign Dermatologic History: Reports: Other (See Below) Other Dermatologic History: 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 - Infectious Disease History Infectious Disease History: Reports: Novel Coronavirus - Past Surgical History Head Surgeries/Procedures: Reports: None GI Surgical History: Reports: None Dermatological Surgical History: Reports: Other (See Below) Social & Family History - Family History Endocrine/Metabolic: Reports: Diabetes, type II Oncologic: Reports: Prostate - Caffeine Use Caffeine Use: Reports: Energy Drinks Caffeine Use Comment: once a day - Recreational Drug Use Recreational Drug Use: No - Living Situation & Occupation Living situation: Reports: (), Other (Roommate) Occupation: Employed ([employer]) ED ROS GENERAL - Review of Systems Review Of Systems: See Below Constitutional: Reports: No Symptoms HEENT: Reports: No Symptoms Respiratory: Reports: Shortness of Breath, Cough. Denies: Pleuritic Chest Pain Cardiovascular: Reports: Dyspnea on Exertion. Denies: Chest Pain, Lightheadedness, Palpitations, Syncope Endocrine: Reports: No Symptoms GI/Abdominal: Reports: No Symptoms : Reports: No Symptoms Musculoskeletal: Reports: No Symptoms Skin: Reports: No Symptoms Neurological: Reports: No Symptoms Psychiatric: Reports: No Symptoms Hematologic/Lymphatic: Reports: No Symptoms Immunologic: Reports: No Symptoms ED EXAM, GENERAL - Physical Exam Exam: See Below Exam Limited By: No Limitations General Appearance: Alert, WD/WN, No Apparent Distress, Obese Respiratory/Chest: No Respiratory Distress, Lungs Clear, Normal Breath Sounds, No Accessory Muscle Use, Chest Non-Tender Cardiovascular: Normal Peripheral Pulses, Regular Rate, Rhythm, No Edema, No Gal lop, No JVD, No Murmur, No Rub Neurological: Alert, Oriented, CN II-XII Intact, Normal Cognition, Normal Gait, Normal Reflexes, No Motor/Sensory Deficits Psychiatric: Normal Affect, Normal Mood Skin Exam: Warm, Dry, Intact, Normal Color, No Rash #1 Interpretation EKG Date: 02/06/21 Time: 17:13 Rhythm: NSR Rate (Beats/Min): 73 [place]: LAD-Left [place] Deviation P-Wave: Present QRS: Normal ST-T: Normal QT: Normal Course - Vital Signs Last Recorded V/S: Last Vital Signs Temp 97.7 F 02/06/21 15:02 Pulse 80 02/06/21 15:02 Resp 24 H 02/06/21 15:02 BP 184/102 H 02/06/21 15:02 Pulse Ox 93 L 02/06/21 15:02 - Orders/Labs/Meds Orders: Active Orders 24 hr Category Date Time Status Chest 1V Frontal [CR] Stat Exams 02/06/21 16:18 Taken Labs: Laboratory Tests 02/06/21 02/06/21 02/06/21 Range/Units 16:51 16:51 16:51 WBC 4.95 (4.23-9.07) K/mm3 RBC 5.11 (4.63-6.08) M/mm3 Hgb 12.5 L (13.7-17.5) gm/dl Hct 40.6 (40.1-51.0) % MCV 79.5 (79.0-92.2) fl MCH 24.5 L (25.7-32.2) pg MCHC 30.8 L (32.2-35.5) g/dl RDW Std Deviation 50.7 H (35.1-43.9) fL Plt Count 278 (163-337) K/mm3 MPV 9.4 (9.4-12.3) fl Neut % (Auto) 48.9 (34.0-67.9) % Lymph % (Auto) 32.7 (21.8-53.1) % [place] % (Auto) 11.7 (5.3-12.2) % Eos % (Auto) 5.7 (0.8-7.0) Baso % (Auto) 0.8 (0.1-1.2) % Neut # (Auto) 2.42 (1.78-5.38) K/mm3 Lymph # (Auto) 1.62 (1.32-3.57) K/mm3 [place] # (Auto) 0.58 (0.30-0.82) K/mm3 Eos # (Auto) 0.28 (0.04-0.54) K/mm3 Baso # (Auto) 0.04 (0.01-0.08) K/mm3 D-Dimer, Quantitative 0.57 H (0.19-0.50) mg/L Sodium 141 (136-145) mEq/L Potassium 3.9 (3.5-5.1) mEq/L Chloride 106 (98-107) mEq/L Carbon Dioxide 29 (21-32) mEq/L Anion Gap 9.9 (5-15) BUN 10 (7-18) mg/dL Creatinine 1.2 (0.7-1.3) mg/dL Est Cr Clr Drug Dosing 100.03 mL/min Estimated GFR (MDRD) > 60 (>60) mL/min BUN/Creatinine Ratio 8.3 L (14-18) Glucose 92 (70-99) mg/dL Calcium 9.0 (8.5-10.1) mg/dL Total Bilirubin 0.4 (0.2-1.0) mg/dL AST 38 H (15-37) U/L ALT 50 (16-63) U/L Alkaline Phosphatase 63 (46-116) U/L Troponin I 0.050 (0.00-0.056) ng/mL C-Reactive Protein 1.6 H* (<1.0) mg/dL NT-Pro-B Natriuret Pep (0-125) pg/mL Total Protein 7.8 (6.4-8.2) g/dl Albumin 3.7 (3.4-5.0) g/dl Globulin 4.1 gm/dL Albumin/Globulin Ratio 0.9 L (1-2) SARS-CoV-2 RNA (STIVEN) (NEGATIVE) 02/06/21 02/06/21 Range/Units 16:51 17:11 WBC (4.23-9.07) K/mm3 RBC (4.63-6.08) M/mm3 Hgb (13.7-17.5) gm/dl Hct (40.1-51.0) % MCV (79.0-92.2) fl MCH (25.7-32.2) pg MCHC (32.2-35.5) g/dl RDW Std Deviation (35.1-43.9) fL Plt Count (163-337) K/mm3 MPV (9.4-12.3) fl Neut % (Auto) (34.0-67.9) % Lymph % (Auto) (21.8-53.1) % [place] % (Auto) (5.3-12.2) % Eos % (Auto) (0.8-7.0) Baso % (Auto) (0.1-1.2) % Neut # (Auto) (1.78-5.38) K/mm3 Lymph # (Auto) (1.32-3.57) K/mm3 [place] # (Auto) (0.30-0.82) K/mm3 Eos # (Auto) (0.04-0.54) K/mm3 Baso # (Auto) (0.01-0.08) K/mm3 D-Dimer, Quantitative (0.19-0.50) mg/L Sodium (136-145) mEq/L Potassium (3.5-5.1) mEq/L Chloride (98-107) mEq/L Carbon Dioxide (21-32) mEq/L Anion Gap (5-15) BUN (7-18) mg/dL Creatinine (0.7-1.3) mg/dL Est Cr Clr Drug Dosing mL/min Estimated GFR (MDRD) (>60) mL/min BUN/Creatinine Ratio (14-18) Glucose (70-99) mg/dL Calcium (8.5-10.1) mg/dL Total Bilirubin (0.2-1.0) mg/dL AST (15-37) U/L ALT (16-63) U/L Alkaline Phosphatase (46-116) U/L Troponin I (0.00-0.056) ng/mL C-Reactive Protein (<1.0) mg/dL NT-Pro-B Natriuret Pep 70 (0-125) pg/mL Total Protein (6.4-8.2) g/dl Albumin (3.4-5.0) g/dl Globulin gm/dL Albumin/Globulin Ratio (1-2) SARS-CoV-2 RNA (STIVEN) Negative (NEGATIVE) Meds: Medications Discontinued Medications Generic Name Dose Route Start Last Admin Trade Name Freq PRN Reason Stop Dose Admin Furosemide 20 mg 02/06/21 18:25 02/06/21 18:49 Furosemide 20 Mg Tab PO 02/06/21 18:26 20 mg ONETIME ONE Administration - Re-Assessments/Exams Free Text/Narrative Re-Assessment/Exam: 02/06/21 18:22 Hematology is grossly unremarkable. D-dimer is very minimally elevated 0.57, however given the patient's size, this is likely insignificant and unfortunately due to patient size will not be able to obtain a CT angiogram of his chest. Chest x-ray shows signs of vascular congestion, however his BNP is normal. EKG shows a normal sinus rhythm. He has been off of his diuretic for 3 weeks. Nursing staff called his pharmacy and they stated that he was on hydrochlorothiazide 100 mg which I feel was misinformation. This is not an appropriate dose of hydrochlorothiazide. Patient will be started on Lasix 20 mg daily with his losartan. Recommend that he call tomorrow to set up a follow-up appointment in the clinic to ensure that his symptoms are improving. Discussed that if his symptoms should worsen, he should return to the emergency department. He verbalized understanding of this. Discharge instructions as documented. Departure - Departure Time of Disposition: 18:26 Disposition: Home, Self-Care 01 Condition: Good Clinical Impression: Exertional dyspnea - Discharge Information *PRESCRIPTION DRUG MONITORING PROGRAM REVIEWED*: No *COPY OF PRESCRIPTION DRUG MONITORING REPORT IN PATIENT SHRAVAN: No Prescriptions: Furosemide [Lasix] 20 mg PO DAILY #30 tab Instructions: Shortness of Breath, Adult, [id number] Referrals: PCP,Not In Area [Primary Care Provider] - Forms: ED Department Discharge Additional Instructions: You were seen in the emergency department today for shortness of breath with exertion. Work-up included blood work, EKG, chest x-ray. Your chest x-ray showed signs of pulmonary vascular congestion which is small amount of fluid within your lungs. Work-up is otherwise normal. This may be related to stopping her diuretic 3 weeks ago. You been started on Lasix 20 mg daily. Take this as prescribed. Recommend calling the clinic tomorrow morning to set up a follow-up visit for next week for reevaluation. If you should experience any worsening symptoms, please do not hesitate to return to the emergency department for reevaluation. Sepsis Event Note (ED) - Focused Exam Vital Signs: Vital Signs Temp Pulse Resp BP Pulse Ox 02/06/21 15:02 97.7 F 80 24 H 184/102 H 93 L - My Orders Last 24 Hours: My Active Orders 02/06/21 16:18 Chest 1V Frontal [CR] Stat - Assessment/Plan Last 24 Hours: My Active Orders 02/06/21 16:18 Chest 1V Frontal [CR] Stat
[2021-02-06] MEDS ORDERED: Furosemide 20 MG Tab PO ONE (18:25)
--- NOTE | 2021-02-07 10:26 | CR ---
Chest: Portable view of the chest was obtained. Comparison: Prior chest x-ray of 03/17/18. Heart size and mediastinum are within normal limits. Lungs are clear with no acute parenchymal change. Bony structures show nothing acute. Impression: 1. Nothing acute is appreciated on portable chest x-ray. Diagnostic code #1
== END 2021-02-06 18:52 | disposition home or self-care (01) ==
LOC: JD.ED 13:31
DX: R06.02 Shortness of breath (principal); E78.00 Pure hypercholesterolemia, unspecified; I10 Essential (primary) hypertension; E66.9 Obesity, unspecified; Z68.30 Body mass index [BMI] 30.0-30.9, adult; Z20.822 Contact with and (suspected) exposure to COVID-19
CPT/HCPCS: 36415; 71045; 80053; 83880; 84484; 85025; 85379; 86140; 87635; 93005; 99285; A9270; 93010; 99283; U0002

== ENCOUNTER 2021-04-30 13:33 | Emergency (ER) | payer OTHER ==
[2021-04-30 14:07] VITALS: BP 170/100; PULSE 81
--- NOTE | 2021-04-30 14:48 | EDM.PDOC ---
ED HPI GENERAL MEDICAL PROBLEM - General Chief Complaint: Headache Stated Complaint: HEADACHE SORE THROAT Time Seen by Provider: 04/30/21 13:53 Source of Information: Reports: Patient History Limitations: Reports: No Limitations - History of Present Illness INITIAL COMMENTS - FREE TEXT/NARRATIVE: 45-year-old male presents the emergency department today with complaints of a sore throat that started approximately 1 week ago. Patient states that initially he also had some sinus congestion noted with a sore throat. Presents today as he feels he is not getting any better. Also states that he has a headache and nausea. He denies any vomiting or diarrhea. He denies any abdominal pain or decrease in appetite. States he has had the fever and chills. States he did have Covid in May 2020 however has not had his Covid vaccine. He is refusing his Covid test today as he states he cannot have Covid as he does not feel the same as when he had it in May. Patient does have a history of hypertension for which he takes losartan. He denies any smoking history. Treatments YOUTH DEVELOPMENT PROFESSIONAL: Reports: Other (see below) Other Treatments YOUTH DEVELOPMENT PROFESSIONAL: none Right Headache Pain Score (Numeric/FACES): 8 Throat Pain Score (Numeric/FACES): 7 - Related Data Allergies Allergy/AdvReac Type Severity Reaction Status Date / Time No Known Allergies Allergy Verified 02/06/21 15:16 Home Meds: Home Meds Losartan/Hydrochlorothiazide [Losartan-HCTZ 100-12.5 MG] 1 each PO DAILY 02/06/21 [History] hydroCHLOROthiazide [Hydrochlorothiazide] 100 mg PO DAILY 02/06/21 [History] Past Medical History - Past Health History Medical/Surgical History: Denies Medical/Surgical History Cardiovascular History: Reports: High Cholesterol, Hypertension Respiratory History: Reports: Sleep Apnea Gastrointestinal History: Reports: GERD Genitourinary History: Reports: None Psychiatric History: Reports: Anxiety Endocrine/Metabolic History: Reports: Obesity/BMI 30+ Immunologic History: Reports: None Oncologic (Cancer) History: Reports: Lymphoma Other Oncologic History: benign Dermatologic History: Reports: Other (See Below) Other Dermatologic History: 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 - Infectious Disease History Infectious Disease History: Reports: Novel Coronavirus - Past Surgical History Head Surgeries/Procedures: Reports: None GI Surgical History: Reports: None Dermatological Surgical History: Reports: Other (See Below) Social & Family History - Family History Endocrine/Metabolic: Reports: Diabetes, type II Oncologic: Reports: Prostate - Tobacco Use Tobacco Use Status *Q: Never Tobacco User - Caffeine Use Caffeine Use: Reports: Energy Drinks, Tea Caffeine Use Comment: once a day - Recreational Drug Use Recreational Drug Use: No - Living Situation & Occupation Living situation: Reports: (), Other (Roommate) Occupation: Employed ([employer]) ED ROS ENT - Review of Systems Review Of Systems: Comprehensive ROS is negative, except as noted in HPI. ED EXAM, ENT - Physical Exam Exam: See Below Exam Limited By: No Limitations General Appearance: Alert, WD/WN, No Apparent Distress Ears: Normal External Exam, Hearing Grossly Normal Nose: Normal Inspection Mouth/Throat: Normal Inspection, Normal Gums, Normal Lips, Normal Oropharynx, Normal Teeth Head: Atraumatic, Normocephalic Neck: Normal Inspection, Supple, Non-Tender, Full Range of Motion. No: Lymphadenopathy (L), Lymphadenopathy (R) Respiratory/Chest: No Respiratory Distress, Lungs Clear, No Accessory Muscle Use, Chest Non-Tender, Decreased Breath Sounds (Likely due to body habitus) Cardiovascular: Normal Peripheral Pulses, Regular Rate, Rhythm, No Edema GI/Abdominal: Normal Bowel Sounds, Soft, Non-Tender, No Distention (Male) Exam: Deferred Rectal (Males) Exam: Deferred Back: Normal Inspection, Full Range of Motion Extremities: Normal Inspection, Normal Range of Motion, Non-Tender, No Pedal Edema, Normal Capillary Refill Neurological: Alert, Oriented, Normal Cognition Psychiatric: Normal Affect, Normal Mood Skin: Warm, Dry, Intact, Normal Color, No Rash Lymphatic: No Adenopathy Course - Vital Signs Text/Narrative:: Stated above patient presents with headache cough sore throat and nausea. Wild macario did agree to be tested for strep throat however he is refusing his Covid testing. Did discuss at length that he likely will be required to quarantine should we find that his strep test is negative as he does have numerous symptoms of Covid. Patient is still refusing Covid testing. Physical exam is essentially unremarkable. Patient's oropharynx is unremarkable I do not appreciate any swelling, erythema or exudate noted to his tonsils. He states he has been taking Marily-[place] and other [id number] cold medications prior to arrival. Last Recorded V/S: Last Vital Signs Temp 97.9 F 04/30/21 14:06 Pulse 81 04/30/21 14:06 Resp 20 04/30/21 14:06 BP 170/100 H 04/30/21 14:06 Pulse Ox 98 04/30/21 14:06 - Orders/Labs/Meds Orders: Active Orders 24 hr Category Date Time Status Communication Order [RC] ASDIRECTED Care 04/30/21 13:58 Active Labs: Laboratory Tests 04/30/21 Range/Units 14:05 Group A Strep (PCR) Detected H (NOT DETECT) Meds: Medications Discontinued Medications Generic Name Dose Route Start Last Admin Trade Name Vania PRN Reason Stop Dose Admin Penicillin G Benzathine 1.2 millunits 04/30/21 15:03 Penicillin G Benzathine 1,200,000 Units/2 Ml Syringe IM 04/30/21 15:04 ONETIME ONE - Re-Assessments/Exams Free Text/Narrative Re-Assessment/Exam: 04/30/21 15:08 Group A strep test detected High. I have ordered for the patient to receive benzathine penicillin G 1,200,000 units IM x1 dose and he will then be discharged to home. Departure - Departure Time of Disposition: 15:08 Disposition: Home, Self-Care 01 Condition: Good Clinical Impression: Pharyngitis - Discharge Information Instructions: Pharyngitis, [id number], Pain Medicine Instructions, [id number] Referrals: Sharon Cast ENERGY ENGINEER [Primary Care Provider] - Forms: ED Department Discharge Additional Instructions: You were seen in the emergency department today with complaints of sore throat, headache, and nausea. Strep test was completed and this did come back positive. You are given a shot of penicillin. This is the only antibiotic you will need to clear up the infection in your throat. Until that time recommend drinking plenty of fluids and getting plenty rest. May take Tylenol 650 mg alternating with ibuprofen 600 mg every 4 hours for fever or discomfort. You will likely start to feel better within the next couple of days or so. Should your condition worsen or change, do not hesitate return to the emergency department. Sepsis Event Note (ED) - Focused Exam Vital Signs: Vital Signs Temp Pulse Resp BP Pulse Ox 04/30/21 14:06 97.9 F 81 20 170/100 H 98 - My Orders Last 24 Hours: My Active Orders 04/30/21 13:58 Communication Order [RC] ASDIRECTED - Assessment/Plan Last 24 Hours: My Active Orders 04/30/21 13:58 Communication Order [RC] ASDIRECTED
[2021-04-30] MEDS ORDERED: Penicillin G Benzathine 1,200,000 Units/2 ML Syringe IM ONE (15:03)
== END 2021-04-30 15:49 | disposition home or self-care (01) ==
LOC: JD.ED 13:33
DX: J02.9 Acute pharyngitis, unspecified (principal)
CPT/HCPCS: 87651; 96372; 99283; J0561

== ENCOUNTER 2021-10-10 22:20 | Emergency (ER) | payer SELFPAY ==
[2021-10-10 23:05] VITALS: BP 156/79; PULSE 68
== END 2021-10-10 23:05 | disposition home or self-care (01) ==
LOC: JD.ED 22:20
DX: I10 Essential (primary) hypertension (principal); E66.9 Obesity, unspecified; Z68.44 Body mass index [BMI] 60.0-69.9, adult; Z79.899 Other long term (current) drug therapy
CPT/HCPCS: 99282; 99283

== ENCOUNTER 2021-11-12 12:58 | Emergency (ER) | payer MEDICAID ==
[2021-11-12 13:46] VITALS: BP 152/102; PULSE 63
[2021-11-12] MEDS ORDERED: Sodium Chloride 0.9% 1,000 ML IV ONE (13:53)
[2021-11-12] MEDS ORDERED: Ketorolac 30 MG/ML SDV IVPUSH ONE (13:53)
[2021-11-12] MEDS ORDERED: diphenhydrAMINE 50 MG/ML SDV IVPUSH ONE (13:53)
[2021-11-12] MEDS ORDERED: Metoclopramide 10 MG/2 ML SDV IVPUSH ONE (13:53)
[2021-11-12] MEDS ORDERED: Sodium Chloride 0.9% 10 ML Syringe FLUSH PRN (13:53)
== END 2021-11-12 15:29 | disposition home or self-care (01) ==
LOC: JD.ED 12:58
DX: J01.10 Acute frontal sinusitis, unspecified (principal); I10 Essential (primary) hypertension; K21.9 Gastro-esophageal reflux disease without esophagitis; E66.9 Obesity, unspecified; Z68.43 Body mass index [BMI] 50.0-59.9, adult; Z79.899 Other long term (current) drug therapy
CPT/HCPCS: 70450; 96361; 96374; 96375; 99284; J1200; J1885; J2765; J3490; J7030

== ENCOUNTER 2022-02-11 14:37 | Emergency (ER) | payer MEDICAID ==
[2022-02-11 15:38] VITALS: BP 151/106; PULSE 69
[2022-02-11] MEDS ORDERED: Ketorolac 60 MG/2 ML SDV IM ONE (16:12)
== END 2022-02-11 16:45 | disposition home or self-care (01) ==
LOC: JD.ED 14:37
DX: G44.209 Tension-type headache, unspecified, not intractable (principal); F41.9 Anxiety disorder, unspecified; I10 Essential (primary) hypertension; E66.9 Obesity, unspecified; Z68.43 Body mass index [BMI] 50.0-59.9, adult; Z79.899 Other long term (current) drug therapy; Z86.16 Personal history of COVID-19
CPT/HCPCS: 96372; 99283; J1885; 29581-GP; 97140-GP; 97530-GP

== ENCOUNTER 2022-04-29 13:18 | Emergency (ER) | payer MEDICAID ==
[2022-04-29] MEDS ORDERED: Ondansetron 4 MG Tab.DIS PO ONE (13:47)
[2022-04-29 15:26] LABS: CORONAVIRUS COVID-19 NAA NEGATIVE (NEGATIVE)
[2022-04-29 16:03] VITALS: BP 120/74; PULSE 61
== END 2022-04-29 16:06 | disposition home or self-care (01) ==
LOC: JD.ED 13:18
DX: J06.9 Acute upper respiratory infection, unspecified (principal); R11.0 Nausea; I10 Essential (primary) hypertension; E66.9 Obesity, unspecified; Z79.899 Other long term (current) drug therapy; Z20.822 Contact with and (suspected) exposure to COVID-19
CPT/HCPCS: 0240U; 99283; A9270

== ENCOUNTER 2022-06-13 15:29 | Emergency (ER) | payer MEDICAID ==
[2022-06-13] MEDS ORDERED: Sodium Chloride 0.9% 10 ML Syringe FLUSH PRN (15:58)
[2022-06-13] MEDS ORDERED: HYDROmorphone 1 MG/ML Syringe IVPUSH STA (15:58)
[2022-06-13] MEDS ORDERED: Ondansetron 4 MG/2 ML SDV IVPUSH ONE (15:58)
[2022-06-13] MEDS ORDERED: Sodium Chloride 0.9% 1,000 ML IV SCH (16:00)
[2022-06-13] MEDS ORDERED: Iopamidol 612 MG/ML 100 ML Bottle IVPUSH ONE (16:30)
[2022-06-13] MEDS ORDERED: Sodium Chloride 0.9% 10 ML Syringe FLUSH ONE (16:33)
[2022-06-13 18:33] VITALS: BP 121/79; PULSE 61
== END 2022-06-13 18:05 | disposition home or self-care (01) ==
LOC: JD.ED 15:29
DX: I95.1 Orthostatic hypotension (principal); R10.9 Unspecified abdominal pain; I10 Essential (primary) hypertension; E66.01 Morbid (severe) obesity due to excess calories; Z68.43 Body mass index [BMI] 50.0-59.9, adult
CPT/HCPCS: 36415; 74177; 80053; 81001; 83690; 85025; 86140; 96361; 96374; 96375; 99285; J1170; J2405; J3490; J7030; Q9967

== ENCOUNTER 2022-06-16 19:25 | Emergency (ER) | payer MEDICAID ==
[2022-06-16] MEDS ORDERED: Alum Hydrox/Mag Hydrox/Simeth 30 ML, Lidocaine 2% 15 ML PO ONE ×2 (20:06)
[2022-06-16 22:36] VITALS: BP 122/93; PULSE 60
== END 2022-06-16 22:18 | disposition home or self-care (01) ==
LOC: JD.ED 19:25
DX: R07.89 Other chest pain (principal); G44.209 Tension-type headache, unspecified, not intractable; R10.84 Generalized abdominal pain; I10 Essential (primary) hypertension; E66.9 Obesity, unspecified; Z68.43 Body mass index [BMI] 50.0-59.9, adult; Z79.899 Other long term (current) drug therapy; Z86.16 Personal history of COVID-19
CPT/HCPCS: 36415; 71045; 80053; 83690; 83735; 84484; 85025; 86140; 93005; 99285; A9270; 93010; 99284

== ENCOUNTER 2022-08-04 07:17 | Emergency (ER) | payer MEDICAID ==
[2022-08-04 07:45] VITALS: PULSE 64
[2022-08-04] MEDS ORDERED: Famotidine 20 MG Tab PO STA (09:49)
[2022-08-04 11:14] VITALS: BP 144/89
== END 2022-08-04 10:30 | disposition home or self-care (01) ==
LOC: JD.ED 07:17
DX: R07.89 Other chest pain (principal); K21.9 Gastro-esophageal reflux disease without esophagitis; I10 Essential (primary) hypertension; E66.01 Morbid (severe) obesity due to excess calories; Z68.42 Body mass index [BMI] 45.0-49.9, adult; Z86.16 Personal history of COVID-19; Z79.899 Other long term (current) drug therapy
CPT/HCPCS: 36415; 71046; 80053; 83880; 84484; 85025; 85379; 93005; 99285; A9270; 93010; 99284

== ENCOUNTER 2022-09-02 19:40 | Emergency (ER) | payer MEDICAID ==
[2022-09-02 19:54] VITALS: PULSE 60
[2022-09-02 21:38] VITALS: BP 146/97
== END 2022-09-02 21:36 | disposition home or self-care (01) ==
LOC: JD.ED 19:40
DX: R51.9 Headache, unspecified (principal); E78.00 Pure hypercholesterolemia, unspecified; I10 Essential (primary) hypertension; E66.9 Obesity, unspecified; Z68.42 Body mass index [BMI] 45.0-49.9, adult; Z79.899 Other long term (current) drug therapy; Z86.16 Personal history of COVID-19
CPT/HCPCS: 36415; 70450; 70450-26; 80053; 84484; 85025; 93005; 99284

== ENCOUNTER 2022-11-26 18:13 | Emergency (ER) | payer MEDICAID ==
[2022-11-26] MEDS ORDERED: Sodium Chloride 0.9% 10 ML Syringe FLUSH PRN (18:37)
[2022-11-26 18:55] LABS: BASOPHILS ABSOLUTE AUTO 0.03 K/mm3 (0.01-0.08); BASOPHILS PERCENT AUTO 0.7 % (0.1-1.2); EOSINOPHILS ABSOLUTE AUTO 0.14 K/mm3 (0.04-0.54); EOSINOPHILS PERCENT AUTO 3.3 (0.8-7.0); HEMATOCRIT 42.6 % (40.1-51.0); HEMOGLOBIN 14.4 gm/dl (13.7-17.5); IMMATURE GRAN ABSOLUTE AUTO 0.01 K/mm3 (0.00-0.10); IMMATURE GRAN PERCENT AUTO 0.2 % (<=1.0); LYMPHOCYTES ABSOLUTE AUTO 1.85 K/mm3 (1.32-3.57); MEAN CORPUSCULAR HEMOGLOBIN 25.6 pg (25.7-32.2); MEAN CORPUSCULAR HGB CONC 33.8 g/dl (32.2-35.5); MEAN CORPUSCULAR VOLUME 75.8 fl (79.0-92.2); MEAN PLATELET VOLUME 9.6 fl (9.4-12.3); MONOCYTES ABSOLUTE AUTO 0.35 K/mm3 (0.30-0.82); MONOCYTES PERCENT AUTO 8.1 % (5.3-12.2); NEUTROPHILS ABSOLUTE AUTO 1.92 K/mm3 (1.78-5.38); NEUTROPHILS PERCENT AUTO 44.7 % (34.0-67.9); PLATELET COUNT,PLT 275 K/mm3 (163-337); RED BLOOD CELL COUNT 5.62 M/mm3 (4.63-6.08)
[2022-11-26 19:01] LABS: D-DIMER QUANTITATIVE 0.42 mg/L (0.19-0.50); INR 0.99; PROTHROMBIN TIME 10.6 SECONDS (9.7-12.0)
[2022-11-26 19:02] LABS: PTT,PARTIAL THROMBOPLSTIN TIME 25.6 SECONDS (21.7-31.4)
[2022-11-26 19:10] LABS: A/G RATIO 1.1 (1-2); ANION GAP 12.3 (5-15); BILIRUBIN TOTAL 0.7 mg/dL (0.2-1.0); BUN/CREATININE RATIO 9.2 (14-18); CALCIUM 9.3 mg/dL (8.5-10.1); CREATININE 1.2 mg/dL (0.7-1.3); EST CRCL DRUG DOSING (CG) 97.97 mL/min; MAGNESIUM 2.2 mg/dL (1.8-2.4); POTASSIUM,K 3.3 mEq/L (3.5-5.1); PROTEIN TOTAL,TP 7.8 g/dl (6.4-8.2)
[2022-11-26 21:32] VITALS: BP 121/87
[2022-11-26 21:34] VITALS: PULSE 61
== END 2022-11-26 21:30 | disposition home or self-care (01) ==
LOC: JD.ED 18:13
DX: R07.89 Other chest pain (principal); I10 Essential (primary) hypertension; E78.00 Pure hypercholesterolemia, unspecified; K21.9 Gastro-esophageal reflux disease without esophagitis; E66.9 Obesity, unspecified; Z68.42 Body mass index [BMI] 45.0-49.9, adult; Z86.16 Personal history of COVID-19; Z79.899 Other long term (current) drug therapy
CPT/HCPCS: 36415; 71045; 80053; 83735; 83880; 84484; 85025; 85379; 85610; 85730; 93005; 99285; J3490; 93010; 99283

== ENCOUNTER 2023-01-13 22:51 | Emergency (ER) | payer MEDICAID ==
[2023-01-13] MEDS ORDERED: Orphenadrine 100 MG Tab.ER PO STA (23:44)
[2023-01-14 00:05] VITALS: BP 118/74; PULSE 65
== END 2023-01-14 00:03 | disposition home or self-care (01) ==
LOC: JD.ED 22:51
DX: R07.89 Other chest pain (principal); E78.00 Pure hypercholesterolemia, unspecified; I10 Essential (primary) hypertension; K21.9 Gastro-esophageal reflux disease without esophagitis; E66.9 Obesity, unspecified; Z68.42 Body mass index [BMI] 45.0-49.9, adult; Z79.899 Other long term (current) drug therapy; Z86.16 Personal history of COVID-19
CPT/HCPCS: 93005; 99284; A9270; 93010; 99282

== ENCOUNTER 2023-03-02 14:40 | Emergency (ER) | payer MEDICAID ==
[2023-03-02] MEDS ORDERED: Ketorolac 60 MG/2 ML SDV IM ONE (15:52)
[2023-03-02] MEDS ORDERED: Ondansetron 4 MG Tab.DIS PO ONE (15:52)
[2023-03-02] MEDS ORDERED: Ketorolac 30 MG/ML SDV IM ONE (16:15)
[2023-03-02] MEDS ORDERED: Acetaminophen 325 MG Tab PO ONE (17:17)
[2023-03-02] MEDS ORDERED: diphenhydrAMINE 50 MG Cap PO ONE (17:18)
[2023-03-02 18:09] VITALS: BP 149/103; PULSE 64
== END 2023-03-02 18:12 | disposition home or self-care (01) ==
LOC: JD.ED 14:40
DX: G44.209 Tension-type headache, unspecified, not intractable (principal); E78.00 Pure hypercholesterolemia, unspecified; K21.00 Gastro-esophageal reflux disease with esophagitis, without bleeding; I10 Essential (primary) hypertension; E66.9 Obesity, unspecified; Z68.42 Body mass index [BMI] 45.0-49.9, adult; Z86.16 Personal history of COVID-19; Z79.899 Other long term (current) drug therapy
CPT/HCPCS: 70450; 96372; 99284; A9270; J1885; Q0163; 99283

== ENCOUNTER 2023-08-16 16:55 | Emergency (ER) | payer MEDICAID ==
[2023-08-16 17:23] VITALS: PULSE 91
[2023-08-16 18:17] LABS: BASOPHILS ABSOLUTE AUTO 0.1 K/mm3 (0.0-0.2); BASOPHILS PERCENT AUTO 1.2 % (0.0-1.0); EOSINOPHILS ABSOLUTE AUTO 0.1 K/mm3 (0.0-0.4); EOSINOPHILS PERCENT AUTO 2.5 % (0.0-6.0); HEMATOCRIT 41.3 % (42.0-52.0); HEMOGLOBIN 13.4 gm/dl (14.0-18.0); IMMATURE GRAN ABSOLUTE AUTO 0.04 K/mm3 (0.00-0.05); IMMATURE GRAN PERCENT AUTO 0.8 % (0.0-0.4); LYMPHOCYTES ABSOLUTE AUTO 0.5 K/mm3 (1.0-4.8); LYMPHOCYTES PERCENT AUTO 9.7 % (24.0-44.0); MEAN CORPUSCULAR HEMOGLOBIN 25.1 pg (28.0-32.0); MEAN CORPUSCULAR HGB CONC 32.4 g/dl (32.0-36.0); MEAN CORPUSCULAR VOLUME 77.5 fl (83.0-99.0); MEAN PLATELET VOLUME 8.7 fl (9.4-12.4); MONOCYTES ABSOLUTE AUTO 0.9 K/mm3 (0.0-0.8); MONOCYTES PERCENT AUTO 17.4 % (0.0-8.0); NEUTROPHILS ABSOLUTE AUTO 3.6 K/mm3 (1.8-7.7); NEUTROPHILS PERCENT AUTO 68.4 % (41.0-71.0); PLATELET COUNT,PLT 226 K/mm3 (150-400); RED BLOOD CELL COUNT 5.33 M/mm3 (4.52-5.90); WHITE BLOOD CELL COUNT,WBC 5.18 K/mm3 (3.9-11.3)
[2023-08-16 18:18] LABS: CORONAVIRUS COVID-19 NAA NEGATIVE (NEGATIVE); INFLUENZA A NAA NEGATIVE (NEGATIVE)
[2023-08-16 18:41] LABS: ALBUMIN 3.5 g/dl (3.4-5.0); BILIRUBIN TOTAL 0.4 mg/dL (0.2-1.0); BUN/CREATININE RATIO 9.2 (14-18); C-REACTIVE PROTEIN 1.49 mg/dL (<0.30); CALCIUM 8.7 mg/dL (8.5-10.1); CREATININE 1.2 mg/dL (0.7-1.3); EST CRCL DRUG DOSING (CG) 96.94 mL/min; PROTEIN TOTAL,TP 7.2 g/dl (6.4-8.2)
[2023-08-16 19:25] VITALS: BP 156/107
== END 2023-08-16 19:04 | disposition home or self-care (01) ==
LOC: JD.ED 16:55
DX: J40 Bronchitis, not specified as acute or chronic (principal); I10 Essential (primary) hypertension; K21.9 Gastro-esophageal reflux disease without esophagitis; E66.9 Obesity, unspecified; Z79.899 Other long term (current) drug therapy; Z86.16 Personal history of COVID-19; Z68.43 Body mass index [BMI] 50.0-59.9, adult
CPT/HCPCS: 0240U; 36415; 80053; 85025; 86140; 99284; 99283

== ENCOUNTER 2023-08-30 09:29 | Emergency (ER) | payer MEDICAID ==
[2023-08-30 09:55] VITALS: PULSE 83
[2023-08-30 11:23] LABS: C-REACTIVE PROTEIN 1.28 mg/dL (<0.30); T4 FREE 0.97 ng/dL (0.76-1.46)
[2023-08-30 12:43] VITALS: BP 157/111
== END 2023-08-30 12:37 | disposition home or self-care (01) ==
LOC: JD.ED 09:29
DX: R07.89 Other chest pain (principal); I10 Essential (primary) hypertension; K21.9 Gastro-esophageal reflux disease without esophagitis; E66.9 Obesity, unspecified; Z86.19 Personal history of other infectious and parasitic diseases; Z86.16 Personal history of COVID-19; Z79.899 Other long term (current) drug therapy; Z68.43 Body mass index [BMI] 50.0-59.9, adult
CPT/HCPCS: 36415; 71250; 71250-26; 84439; 84484; 86140; 93005; 99285

== ENCOUNTER 2023-09-16 12:12 | Emergency (ER) | payer MEDICAID ==
[2023-09-16 13:51] LABS: BASOPHILS ABSOLUTE AUTO 0.1 K/mm3 (0.0-0.2); BASOPHILS PERCENT AUTO 0.9 % (0.0-1.0); EOSINOPHILS ABSOLUTE AUTO 0.2 K/mm3 (0.0-0.4); EOSINOPHILS PERCENT AUTO 3.8 % (0.0-6.0); HEMOGLOBIN 13.5 gm/dl (14.0-18.0); IMMATURE GRAN ABSOLUTE AUTO 0.02 K/mm3 (0.00-0.05); IMMATURE GRAN PERCENT AUTO 0.4 % (0.0-0.4); LYMPHOCYTES ABSOLUTE AUTO 1.6 K/mm3 (1.0-4.8); MEAN CORPUSCULAR HEMOGLOBIN 25.2 pg (28.0-32.0); MEAN CORPUSCULAR HGB CONC 32.1 g/dl (32.0-36.0); MEAN CORPUSCULAR VOLUME 78.5 fl (83.0-99.0); MEAN PLATELET VOLUME 8.4 fl (9.4-12.4); MONOCYTES ABSOLUTE AUTO 0.6 K/mm3 (0.0-0.8); MONOCYTES PERCENT AUTO 10.7 % (0.0-8.0); NEUTROPHILS PERCENT AUTO 55.2 % (41.0-71.0); PLATELET COUNT,PLT 256 K/mm3 (150-400); RED BLOOD CELL COUNT 5.35 M/mm3 (4.52-5.90); WHITE BLOOD CELL COUNT,WBC 5.51 K/mm3 (3.9-11.3)
[2023-09-16 14:07] LABS: INR 0.97; PROTHROMBIN TIME 10.4 SECONDS (9.7-12.0)
[2023-09-16] MEDS: Sodium Chloride 0.9% 10 ML Syringe FLUSH PRN (14:07)
[2023-09-16 14:08] LABS: PTT,PARTIAL THROMBOPLSTIN TIME 26.7 SECONDS (21.7-31.4)
[2023-09-16 14:14] LABS: ALBUMIN 3.5 g/dl (3.4-5.0); ANION GAP 9.8 (5-15); BILIRUBIN TOTAL 0.4 mg/dL (0.2-1.0); BUN/CREATININE RATIO 14.5 (14-18); CALCIUM 8.8 mg/dL (8.5-10.1); CREATININE 1.1 mg/dL (0.7-1.3); EST CRCL DRUG DOSING (CG) 105.75 mL/min; POTASSIUM,K 3.8 mEq/L (3.5-5.1); PROTEIN TOTAL,TP 7.1 g/dl (6.4-8.2)
[2023-09-16] MEDS: Alum Hydrox/Mag Hydrox/Simeth 30 ML, Lidocaine 2% 15 ML PO ONE (15:00)
[2023-09-16] MEDS: Acetaminophen 325 MG Tab PO SCH (15:00)
[2023-09-16 15:22] VITALS: BP 126/79; PULSE 86
== END 2023-09-16 15:05 | disposition home or self-care (01) ==
LOC: JD.ED 12:12
DX: R07.9 Chest pain, unspecified (principal); I10 Essential (primary) hypertension; K21.9 Gastro-esophageal reflux disease without esophagitis; E66.9 Obesity, unspecified; Z79.899 Other long term (current) drug therapy; Z86.16 Personal history of COVID-19; Z86.19 Personal history of other infectious and parasitic diseases; Z68.43 Body mass index [BMI] 50.0-59.9, adult
CPT/HCPCS: 36415; 71045; 71045-26; 80053; 83690; 83735; 84484; 85025; 85610; 85730; 93005; 93010; 99283; 99285; A9270-GY; J3490

== ENCOUNTER 2023-11-01 03:45 | Emergency (ER) | payer MEDICAID ==
[2023-11-01] MEDS ORDERED: NIFEdipine 10 MG Cap PO ONE (04:12)
[2023-11-01] MEDS ORDERED: Sodium Chloride 0.9% 10 ML Syringe FLUSH PRN (04:14)
[2023-11-01] MEDS: Alum Hydrox/Mag Hydrox/Simeth 30 ML, Lidocaine 2% 15 ML PO ONE (04:42)
[2023-11-01 04:45] LABS: BASOPHILS PERCENT AUTO 0.8 % (0.0-1.0); EOSINOPHILS ABSOLUTE AUTO 0.1 K/mm3 (0.0-0.4); EOSINOPHILS PERCENT AUTO 1.8 % (0.0-6.0); HEMATOCRIT 42.1 % (42.0-52.0); HEMOGLOBIN 13.4 gm/dl (14.0-18.0); IMMATURE GRAN ABSOLUTE AUTO 0.02 K/mm3 (0.00-0.05); IMMATURE GRAN PERCENT AUTO 0.4 % (0.0-0.4); LYMPHOCYTES ABSOLUTE AUTO 1.8 K/mm3 (1.0-4.8); LYMPHOCYTES PERCENT AUTO 36.1 % (24.0-44.0); MEAN CORPUSCULAR HEMOGLOBIN 25.2 pg (28.0-32.0); MEAN CORPUSCULAR HGB CONC 31.8 g/dl (32.0-36.0); MEAN CORPUSCULAR VOLUME 79.3 fl (83.0-99.0); MEAN PLATELET VOLUME 8.9 fl (9.4-12.4); MONOCYTES ABSOLUTE AUTO 0.4 K/mm3 (0.0-0.8); MONOCYTES PERCENT AUTO 8.6 % (0.0-8.0); NEUTROPHILS ABSOLUTE AUTO 2.6 K/mm3 (1.8-7.7); NEUTROPHILS PERCENT AUTO 52.3 % (41.0-71.0); PLATELET COUNT,PLT 249 K/mm3 (150-400); RED BLOOD CELL COUNT 5.31 M/mm3 (4.52-5.90); WHITE BLOOD CELL COUNT,WBC 5.02 K/mm3 (3.9-11.3)
[2023-11-01 04:51] VITALS: BP 125/80; PULSE 61
[2023-11-01 05:08] LABS: A/G RATIO 0.9 (1-2); ALBUMIN 3.4 g/dl (3.4-5.0); ANION GAP 12.5 (5-15); BILIRUBIN TOTAL 0.5 mg/dL (0.2-1.0); BUN/CREATININE RATIO 13.8 (14-18); CALCIUM 8.7 mg/dL (8.5-10.1); CREATININE 1.3 mg/dL (0.7-1.3); EST CRCL DRUG DOSING (CG) 87.17 mL/min; POTASSIUM,K 4.5 mEq/L (3.5-5.1); PROTEIN TOTAL,TP 7.1 g/dl (6.4-8.2)
[2023-11-01] MEDS: Pantoprazole 40 MG Vial IVPUSH ONE (05:26)
== END 2023-11-01 05:25 ==
LOC: JD.ED 03:45
DX: I15.8 Other secondary hypertension (principal); E66.01 Morbid (severe) obesity due to excess calories; Z68.43 Body mass index [BMI] 50.0-59.9, adult; R00.1 Bradycardia, unspecified; K21.00 Gastro-esophageal reflux disease with esophagitis, without bleeding; I10 Essential (primary) hypertension; Z79.899 Other long term (current) drug therapy; Z86.16 Personal history of COVID-19
CPT/HCPCS: 36415; 80053; 83735; 84484; 85025; 93005; 99285; A9270; 93010; 99284

== ENCOUNTER 2023-11-20 20:36 | Emergency (ER) | payer MEDICAID ==
[2023-11-20 22:07] VITALS: BP 120/69; PULSE 76
== END 2023-11-20 22:05 | disposition home or self-care (01) ==
LOC: JD.ED 20:36
DX: R20.2 Paresthesia of skin (principal); I10 Essential (primary) hypertension; K21.9 Gastro-esophageal reflux disease without esophagitis; E66.9 Obesity, unspecified; Z68.43 Body mass index [BMI] 50.0-59.9, adult; Z79.899 Other long term (current) drug therapy
CPT/HCPCS: 99283

== ENCOUNTER 2023-11-21 07:56 | Emergency (ER) | payer MEDICAID ==
[2023-11-21] MEDS: Triamcinolone Acetonide 40 MG/ML 1 ML SDV INJECT ONE (08:57)
[2023-11-21] MEDS: Lidocaine 1% 10 ML MDV INJECT ONE (08:57)
[2023-11-21 09:36] VITALS: BP 130/82; PULSE 76
== END 2023-11-21 09:05 | disposition home or self-care (01) ==
LOC: JD.ED 07:56
DX: R20.2 Paresthesia of skin (principal); I10 Essential (primary) hypertension; K21.9 Gastro-esophageal reflux disease without esophagitis; E66.9 Obesity, unspecified; Z79.899 Other long term (current) drug therapy; Z68.43 Body mass index [BMI] 50.0-59.9, adult
CPT/HCPCS: 96372; 99284; J3301; 99283; J3490

== ENCOUNTER 2023-11-22 06:17 | Emergency (ER) | payer MEDICAID ==
[2023-11-22 06:27] VITALS: BP 151/108; PULSE 87
== END 2023-11-22 06:51 | disposition home or self-care (01) ==
LOC: JD.ED 06:17
DX: R50.9 Fever, unspecified (principal); M54.9 Dorsalgia, unspecified; I10 Essential (primary) hypertension; K21.9 Gastro-esophageal reflux disease without esophagitis; E66.9 Obesity, unspecified; Z79.899 Other long term (current) drug therapy
CPT/HCPCS: 99282; 99283

== ENCOUNTER 2024-01-11 23:12 | Emergency (ER) | payer MEDICAID ==
[2024-01-11 23:32] VITALS: BP 138/86
[2024-01-12 01:59] VITALS: PULSE 65
== END 2024-01-12 01:59 | disposition home or self-care (01) ==
LOC: JD.ED 23:12
DX: R51.9 Headache, unspecified (principal); I10 Essential (primary) hypertension; K21.9 Gastro-esophageal reflux disease without esophagitis; E66.9 Obesity, unspecified; Z79.899 Other long term (current) drug therapy; Z68.43 Body mass index [BMI] 50.0-59.9, adult
CPT/HCPCS: 70450; 70450-26; 99282; 99284

== ENCOUNTER 2024-07-16 09:59 | Emergency (ER) | payer MEDICAID ==
[2024-07-16 11:12] LABS: BASOPHILS PERCENT AUTO 0.9 % (0.0-1.0); EOSINOPHILS ABSOLUTE AUTO 0.1 K/mm3 (0.0-0.4); EOSINOPHILS PERCENT AUTO 2.8 % (0.0-6.0); HEMATOCRIT 41.8 % (42.0-52.0); HEMOGLOBIN 14.2 gm/dl (14.0-18.0); IMMATURE GRAN ABSOLUTE AUTO 0.01 K/mm3 (0.00-0.05); IMMATURE GRAN PERCENT AUTO 0.3 % (0.0-0.4); LYMPHOCYTES ABSOLUTE AUTO 1.3 K/mm3 (1.0-4.8); LYMPHOCYTES PERCENT AUTO 37.8 % (24.0-44.0); MEAN CORPUSCULAR HEMOGLOBIN 25.4 pg (28.0-32.0); MEAN CORPUSCULAR VOLUME 74.6 fl (83.0-99.0); MEAN PLATELET VOLUME 8.8 fl (9.4-12.4); MONOCYTES ABSOLUTE AUTO 0.3 K/mm3 (0.0-0.8); MONOCYTES PERCENT AUTO 8.8 % (0.0-8.0); NEUTROPHILS ABSOLUTE AUTO 1.7 K/mm3 (1.8-7.7); NEUTROPHILS PERCENT AUTO 49.4 % (41.0-71.0); PLATELET COUNT,PLT 237 K/mm3 (150-400); WHITE BLOOD CELL COUNT,WBC 3.52 K/mm3 (3.9-11.3)
[2024-07-16 11:34] LABS: ALBUMIN 3.6 g/dl (3.4-5.0); ANION GAP 12.3 (5-15); BILIRUBIN TOTAL 0.5 mg/dL (0.2-1.0); CALCIUM 9.4 mg/dL (8.5-10.1); EST CRCL DRUG DOSING (CG) 112.12 mL/min; POTASSIUM,K 3.3 mEq/L (3.5-5.1); PROTEIN TOTAL,TP 7.1 g/dl (6.4-8.2)
[2024-07-16 13:49] VITALS: BP 104/74; PULSE 56
== END 2024-07-16 12:51 | disposition home or self-care (01) ==
LOC: JD.ED 09:59
DX: R10.84 Generalized abdominal pain (principal); I10 Essential (primary) hypertension; Z79.899 Other long term (current) drug therapy; Z79.85 Long-term (current) use of injectable non-insulin antidiabetic drugs
CPT/HCPCS: 36415; 74022; 74022-26; 80053; 83690; 85025; 99283; 99285

== ENCOUNTER 2024-08-21 21:22 | Emergency (ER) | payer MEDICAID ==
[2024-08-21] MEDS: Oxymetazoline 0.05% Nasal Spray 30 ML Bottle NAS ONE (22:13)
[2024-08-21 22:48] VITALS: BP 110/90; PULSE 67
== END 2024-08-21 21:48 | disposition home or self-care (01) ==
LOC: JD.ED 21:22
DX: R04.0 Epistaxis (principal); I10 Essential (primary) hypertension; E66.9 Obesity, unspecified; K21.9 Gastro-esophageal reflux disease without esophagitis; Z79.899 Other long term (current) drug therapy
CPT/HCPCS: 99283; A9270

== ENCOUNTER 2024-11-08 09:49 | Emergency (ER) | payer MEDICAID ==
[2024-11-08] MEDS ORDERED: Sodium Chloride 0.9% 10 ML Syringe FLUSH PRN (10:05)
[2024-11-08] MEDS: Aspirin 81 MG Tab.Chew PO ONE (10:29)
[2024-11-08 11:09] LABS: EOSINOPHILS ABSOLUTE AUTO 0.1 K/mm3 (0.0-0.4); EOSINOPHILS PERCENT AUTO 2.4 % (0.0-6.0); HEMATOCRIT 42.5 % (42.0-52.0); HEMOGLOBIN 13.6 gm/dl (14.0-18.0); IMMATURE GRAN ABSOLUTE AUTO 0.01 K/mm3 (0.00-0.05); IMMATURE GRAN PERCENT AUTO 0.3 % (0.0-0.4); LYMPHOCYTES ABSOLUTE AUTO 1.6 K/mm3 (1.0-4.8); LYMPHOCYTES PERCENT AUTO 41.2 % (24.0-44.0); MEAN CORPUSCULAR HEMOGLOBIN 25.2 pg (28.0-32.0); MEAN CORPUSCULAR VOLUME 78.8 fl (83.0-99.0); MEAN PLATELET VOLUME 8.8 fl (9.4-12.4); MONOCYTES ABSOLUTE AUTO 0.3 K/mm3 (0.0-0.8); MONOCYTES PERCENT AUTO 8.4 % (0.0-8.0); NEUTROPHILS ABSOLUTE AUTO 1.8 K/mm3 (1.8-7.7); NEUTROPHILS PERCENT AUTO 46.7 % (41.0-71.0); PLATELET COUNT,PLT 234 K/mm3 (150-400); RED BLOOD CELL COUNT 5.39 M/mm3 (4.52-5.90); WHITE BLOOD CELL COUNT,WBC 3.81 K/mm3 (3.9-11.3)
[2024-11-08 11:17] LABS: APPEARANCE,URINE CLEAR (Clear); BILIRUBIN,URINE NEGATIVE (Negative); COLOR,URINE YELLOW (Yellow); GLUCOSE,URINE NEGATIVE (Negative); KETONES,URINE NEGATIVE (Negative); LEUKOCYTE ESTERASE,URINE NEGATIVE (Negative); NITRITE,URINE NEGATIVE (Negative); OCCULT BLOOD,URINE NEGATIVE (Negative); PH,URINE 7.5 (5.0-8.0); PROTEIN,URINE NEGATIVE (Negative); UROBILINOGEN,URINE 0.2 (0.2-1.0)
[2024-11-08 11:41] LABS: ALBUMIN 3.4 g/dl (3.4-5.0); ANION GAP 9.4 (5-15); BILIRUBIN TOTAL 0.5 mg/dL (0.2-1.0); BUN/CREATININE RATIO 16.7 (14-18); CALCIUM 8.9 mg/dL (8.5-10.1); CREATININE 0.9 mg/dL (0.7-1.3); EST CRCL DRUG DOSING (CG) 121.27 mL/min; MAGNESIUM 1.9 mg/dL (1.8-2.4); POTASSIUM,K 3.4 mEq/L (3.5-5.1); PROTEIN TOTAL,TP 6.7 g/dl (6.4-8.2)
[2024-11-08 18:32] VITALS: BP 141/97; PULSE 53
== END 2024-11-08 13:30 | disposition home or self-care (01) ==
LOC: JD.ED 09:49
DX: R07.9 Chest pain, unspecified (principal); I10 Essential (primary) hypertension; K21.9 Gastro-esophageal reflux disease without esophagitis; E66.9 Obesity, unspecified; Z68.42 Body mass index [BMI] 45.0-49.9, adult; Z79.899 Other long term (current) drug therapy
CPT/HCPCS: 36415; 71045; 71045-26; 80053; 81003; 83735; 84484; 85025; 93005; 99283; 99285; A9270-GY

== ENCOUNTER 2024-12-05 12:46 | Emergency (ER) | payer MEDICAID ==
[2024-12-05] MEDS ORDERED: Sodium Chloride 0.9% 10 ML Syringe FLUSH PRN (13:33)
[2024-12-05] MEDS: Alum Hydrox/Mag Hydrox/Simeth 30 ML, Lidocaine 2% 15 ML PO ONE (14:37)
[2024-12-05 14:53] LABS: BASOPHILS ABSOLUTE AUTO 0.0 K/mm3 (0.0-0.2); BASOPHILS PERCENT AUTO 1.0 % (0.0-1.0); EOSINOPHILS ABSOLUTE AUTO 0.1 K/mm3 (0.0-0.4); EOSINOPHILS PERCENT AUTO 2.8 % (0.0-6.0); IMMATURE GRAN ABSOLUTE AUTO 0.00 K/mm3 (0.00-0.05); IMMATURE GRAN PERCENT AUTO 0.0 % (0.0-0.4); LYMPHOCYTES ABSOLUTE AUTO 1.7 K/mm3 (1.0-4.8); LYMPHOCYTES PERCENT AUTO 42.5 % (24.0-44.0); MEAN PLATELET VOLUME 9.3 fl (9.4-12.4); MONOCYTES ABSOLUTE AUTO 0.4 K/mm3 (0.0-0.8); MONOCYTES PERCENT AUTO 9.6 % (0.0-8.0); NEUTROPHILS ABSOLUTE AUTO 1.7 K/mm3 (1.8-7.7); NEUTROPHILS PERCENT AUTO 44.1 % (41.0-71.0); NRBC ABSOLUTE 0.00 (0.00-0.02); NRBC PERCENT 0.0 % (0.0-0.2); PLATELET COUNT,PLT 257 K/mm3 (150-400); RED BLOOD CELL COUNT 5.25 M/mm3 (4.52-5.90); WHITE BLOOD CELL COUNT,WBC 3.95 K/mm3 (3.9-11.3)
[2024-12-05 15:06] LABS: A/G RATIO 1.0 (1-2); ALANINE AMINOTRANSFERASE,ALT 26.0 U/L (16-63); ASPARTATE AMNIOTRANSFERASE,AST 21.0 U/L (15-37); BILIRUBIN TOTAL 0.3 mg/dL (0.2-1.0); BLOOD UREA NITROGEN,BUN 14.0 mg/dL (7-18); CARBON DIOXIDE,CO2 29.0 mEq/L (21-32); CHLORIDE,CL 105.0 mEq/L (98-107); CREATININE 0.9 mg/dL (0.7-1.3); EST CRCL DRUG DOSING (CG) 121.27 mL/min; ESTIMATED GFR 106.0 mL/min (>60); GLUCOSE RANDOM 99.0 mg/dL (70-99); POTASSIUM,K 3.6 mEq/L (3.5-5.1); PROTEIN TOTAL,TP 6.5 g/dl (6.4-8.2); SODIUM,NA 140.0 mEq/L (136-145); TROPONIN I HIGH SENSITIVITY 26.0 pg/mL (<=76)
[2024-12-05] MEDS: Sodium Chloride 0.9% 10 ML Syringe FLUSH ONE (15:55)
[2024-12-05] MEDS: Iopamidol 755 Mg/ML 100 ML Bottle IVPUSH ONE (15:55)
[2024-12-05 17:15] VITALS: BP 132/94; PULSE 48
== END 2024-12-05 17:15 | disposition home or self-care (01) ==
LOC: JD.ED 12:46
DX: K21.9 Gastro-esophageal reflux disease without esophagitis (principal); R07.89 Other chest pain; I10 Essential (primary) hypertension; E66.9 Obesity, unspecified; Z79.899 Other long term (current) drug therapy; Z68.41 Body mass index [BMI] 40.0-44.9, adult
CPT/HCPCS: 36415; 71046; 71275; 80053; 83690; 84484; 85025; 85379; 93005; 99285; A9270; Q9967

== ENCOUNTER 2024-12-28 23:50 | Emergency (ER) | payer MEDICAID ==
[2024-12-28 23:57] VITALS: BP 137/84; PULSE 56
[2024-12-29 01:12] LABS: BASOPHILS ABSOLUTE AUTO 0.0 K/mm3 (0.0-0.2); BASOPHILS PERCENT AUTO 1.0 % (0.0-1.0); EOSINOPHILS ABSOLUTE AUTO 0.4 K/mm3 (0.0-0.4); EOSINOPHILS PERCENT AUTO 9.3 % (0.0-6.0); IMMATURE GRAN ABSOLUTE AUTO 0.01 K/mm3 (0.00-0.05); IMMATURE GRAN PERCENT AUTO 0.3 % (0.0-0.4); LYMPHOCYTES ABSOLUTE AUTO 1.6 K/mm3 (1.0-4.8); LYMPHOCYTES PERCENT AUTO 39.6 % (24.0-44.0); MEAN PLATELET VOLUME 8.8 fl (9.4-12.4); MONOCYTES ABSOLUTE AUTO 0.5 K/mm3 (0.0-0.8); MONOCYTES PERCENT AUTO 11.3 % (0.0-8.0); NEUTROPHILS ABSOLUTE AUTO 1.5 K/mm3 (1.8-7.7); NEUTROPHILS PERCENT AUTO 38.5 % (41.0-71.0); NRBC ABSOLUTE 0.00 (0.00-0.02); NRBC PERCENT 0.0 % (0.0-0.2); PLATELET COUNT,PLT 196 K/mm3 (150-400); RED BLOOD CELL COUNT 5.17 M/mm3 (4.52-5.90); WHITE BLOOD CELL COUNT,WBC 3.99 K/mm3 (3.9-11.3)
[2024-12-29 01:36] LABS: A/G RATIO 1.1 (1-2); ALANINE AMINOTRANSFERASE,ALT 23.0 U/L (16-63); ASPARTATE AMNIOTRANSFERASE,AST 16.0 U/L (15-37); BILIRUBIN TOTAL 0.2 mg/dL (0.2-1.0); BLOOD UREA NITROGEN,BUN 13.0 mg/dL (7-18); CARBON DIOXIDE,CO2 29.0 mEq/L (21-32); CHLORIDE,CL 106.0 mEq/L (98-107); CREATININE 1.0 mg/dL (0.7-1.3); EST CRCL DRUG DOSING (CG) 112.12 mL/min; ESTIMATED GFR 93.0 mL/min (>60); GLUCOSE RANDOM 86.0 mg/dL (70-99); POTASSIUM,K 3.5 mEq/L (3.5-5.1); PROTEIN TOTAL,TP 6.4 g/dl (6.4-8.2); SODIUM,NA 142.0 mEq/L (136-145); TROPONIN I HIGH SENSITIVITY 22.0 pg/mL (<=76)
== END 2024-12-29 02:24 | disposition home or self-care (01) ==
LOC: JD.ED 23:50
DX: F41.0 Panic disorder [episodic paroxysmal anxiety] (principal); I10 Essential (primary) hypertension; Z79.899 Other long term (current) drug therapy
CPT/HCPCS: 36415; 71045; 71045-26; 80053; 84484; 85025; 93005; 93010; 99283; 99284

== ENCOUNTER 2025-01-23 05:32 | Emergency (ER) | payer MEDICAID, MEDICARE ==
[2025-01-23] MEDS ORDERED: Sodium Chloride 0.9% 10 ML Syringe FLUSH PRN (06:00)
[2025-01-23] MEDS: Ketorolac 30 MG/ML SDV IVPUSH ONE (06:16)
[2025-01-23] MEDS: diphenhydrAMINE 50 MG/ML SDV IVPUSH ONE (06:16)
[2025-01-23 06:26] LABS: BASOPHILS ABSOLUTE AUTO 0.1 K/mm3 (0.0-0.2); BASOPHILS PERCENT AUTO 1.4 % (0.0-1.0); EOSINOPHILS ABSOLUTE AUTO 0.2 K/mm3 (0.0-0.4); EOSINOPHILS PERCENT AUTO 5.3 % (0.0-6.0); IMMATURE GRAN ABSOLUTE AUTO 0.01 K/mm3 (0.00-0.05); IMMATURE GRAN PERCENT AUTO 0.3 % (0.0-0.4); LYMPHOCYTES ABSOLUTE AUTO 1.3 K/mm3 (1.0-4.8); LYMPHOCYTES PERCENT AUTO 36.8 % (24.0-44.0); MEAN PLATELET VOLUME 9.6 fl (9.4-12.4); MONOCYTES ABSOLUTE AUTO 0.4 K/mm3 (0.0-0.8); MONOCYTES PERCENT AUTO 10.3 % (0.0-8.0); NEUTROPHILS ABSOLUTE AUTO 1.7 K/mm3 (1.8-7.7); NEUTROPHILS PERCENT AUTO 45.9 % (41.0-71.0); NRBC ABSOLUTE 0.00 (0.00-0.02); NRBC PERCENT 0.0 % (0.0-0.2); PLATELET COUNT,PLT 229 K/mm3 (150-400); RED BLOOD CELL COUNT 5.40 M/mm3 (4.52-5.90); WHITE BLOOD CELL COUNT,WBC 3.59 K/mm3 (3.9-11.3)
[2025-01-23 06:52] LABS: A/G RATIO 1.1 (1-2); ALANINE AMINOTRANSFERASE,ALT 26.0 U/L (16-63); ASPARTATE AMNIOTRANSFERASE,AST 20.0 U/L (15-37); BILIRUBIN TOTAL 0.4 mg/dL (0.2-1.0); BLOOD UREA NITROGEN,BUN 9.0 mg/dL (7-18); CARBON DIOXIDE,CO2 31.0 mEq/L (21-32); CHLORIDE,CL 106.0 mEq/L (98-107); CREATININE 1.0 mg/dL (0.7-1.3); EST CRCL DRUG DOSING (CG) 112.12 mL/min; ESTIMATED GFR 93.0 mL/min (>60); GLUCOSE RANDOM 85.0 mg/dL (70-99); POTASSIUM,K 3.8 mEq/L (3.5-5.1); PROTEIN TOTAL,TP 7.0 g/dl (6.4-8.2); SODIUM,NA 142.0 mEq/L (136-145)
[2025-01-23 08:50] VITALS: BP 146/99; PULSE 53
== END 2025-01-23 08:15 | disposition home or self-care (01) ==
LOC: JD.ED 05:32
DX: G44.209 Tension-type headache, unspecified, not intractable (principal); I10 Essential (primary) hypertension; E66.9 Obesity, unspecified; Z79.899 Other long term (current) drug therapy; Z68.41 Body mass index [BMI] 40.0-44.9, adult
CPT/HCPCS: 36415; 70450; 70450-26; 80053; 85025; 86140; 96374; 96375; 99284; 99284-25; J1200; J1885; J2765